=== PATIENT | female | born 1935 | race Caucasian/White ===

== ENCOUNTER → 2016-08-27 | Outpatient (CLI) | payer MEDICARE ==
[~2016-08-27] MED LIST: ALPR0.5T3 PO; ALPR0.5T99 PO; AMBI12.5 PO; ASPI81 PO; ASPI81CH CHEW; CEPH500C3 PO; LEVO100T5 PO; LEVO112T2 PO; LOSA50TA PO; LOVA40TA PO; METO25TA3 PO; PRAM.25 PO; PRAM0.25 PO; PRED10PA2 PO; ROSU20 PO; ROSU40 PO; TOPR25TA2 PO; ULTR50TA5 PO; VITA10002 PO; ZETI10TA5 PO; ZOLP10TA3 PO; coQ10 PO
[2016-08-27 12:01] LABS: PLATELET COUNT 196 TH/MM3 (150-450)
[2016-08-27 12:29] LABS: WESTERGREN SEDIMENTATION RATE 9 mm/hr (0-30)
== END ==
LOC: PLAB 11:38
PROVIDERS: ATTEND Emergency Medicine
DX: M31.6 Other giant cell arteritis (principal)
CPT/HCPCS: 36415; 85049; 85652; 86140

== ENCOUNTER 2016-10-20 11:26 | Observation (INO) | payer MEDICARE ==
[~2016-10-20] VITALS: Ht 157.5 cm; Wt 80.0 kg
[~2016-10-20 11:26] MED LIST changes: -ALPR0.5T3 PO; -ASPI81CH CHEW; -LEVO100T5 PO; -LOSA50TA PO; -METO25TA3 PO; -PRAM0.25 PO; -PRED10PA2 PO; -ROSU40 PO; -ULTR50TA5 PO; -VITA10002 PO; -ZETI10TA5 PO; -ZOLP10TA3 PO
[2016-10-20 11:34] VITALS: BP 175/75; PULSE 69; RESP 20; TEMP 98.1; O2SAT 97
[2016-10-20] MEDS ORDERED: ZOLP10TA3 PO (11:51)
[2016-10-20] MEDS ORDERED: ROSU40 PO (11:51)
[2016-10-20] MEDS ORDERED: ZETI10TA5 PO (11:51)
[2016-10-20] MEDS ORDERED: ALPR0.5T3 PO (11:51)
[2016-10-20] MEDS ORDERED: PRAM0.25 PO (11:51)
[2016-10-20] MEDS ORDERED: ASPI81CH CHEW (11:51)
[2016-10-20] MEDS ORDERED: VITA10002 PO (11:51)
[2016-10-20] MEDS ORDERED: LOSA50TA PO (11:51)
[2016-10-20] MEDS ORDERED: METO25TA3 PO (11:51)
[2016-10-20] MEDS ORDERED: methylPREDNISolone SOD SUCC 125 MG/2 ML VIAL IVP ONE (12:00)
[2016-10-20] MEDS ORDERED: NITROGLYCERIN 2% OINT 1 GM PACKET TOP ONE (12:00)
[2016-10-20] MEDS ORDERED: FUROSEMIDE 40 MG/4 ML VIAL IVP ONE (12:00)
[2016-10-20] MEDS ORDERED: MORPHINE SULFATE 4 MG/ML INJ IV PUSH ONE (12:00)
[2016-10-20] MEDS ORDERED: ASPIRIN 81 MG CHEW TAB PO ONE (12:00)
[2016-10-20] MEDS ORDERED: SODIUM CHLORID 0.9% 500 ML INJ 500 ML IV ONE (12:00)
[2016-10-20] MEDS ORDERED: SODIUM CHLORIDE 0.9% FLUSH 10 ML FLUSH IVF PRN (12:00)
[2016-10-20] MEDS: RESP: ALBUTEROL 2.5 MG/IPRATROPIUM 0.5 MG NEB (SCH) INH (12:02)
[2016-10-20 12:07] VITALS: O2SAT 98
[2016-10-20] MEDS ORDERED: RESP: ALBUTEROL 2.5 MG/IPRATROPIUM 0.5 MG NEB (SCH) NEB ONE (12:15)
[2016-10-20] MEDS ORDERED: LORazepam 2 MG/ML VIAL IV PUSH ONE (12:15)
--- NOTE | 2016-10-20 12:22 | PD ---
HPI Chief Complaint: Chest Pain Time Seen by Provider: 12:14 Travel History International Travel<30 days: No Contact w/Intl Traveler<30days: No Traveled to known affect area: No History of Present Illness HPI 80-year-old female brought into the emergency department via EMS with sudden onset anterior chest pain and difficulty breathing which started this morning while doing some light housework. Patient does have a history of CAD with stent placement in the past. Patient took 2 baby aspirin and received a total of 4 sublingual nitroglycerin with minimal relief. EKG shows sinus rhythm with right bundle-branch block. Patient was satting at 96% on 2 L oxygen via nasal cannula. She describes a severe pain in the anterior chest not worse with movement. No nausea, vomiting, or fever. No history of cough. Patient states it started in her back between her shoulder is now is radiating into the front. Patient is a smoker. She is allergic to Lipitor, Lopid, Mevacor, and sodium. Patient was recently diagnosed with shingles to the posterior neck and right eye. This is being followed by her primary care physician. PFSH Past Medical History Asthma: No Autoimmune Disease: No Blood Disorders: No Anxiety: No Depression: No Cardiac Catheterization: Yes Cardiovascular Problems: Yes High Cholesterol: Yes Chemotherapy: No Chest Pain: No Congestive Heart Failure: No COPD: No Diabetes: No Diminished Hearing: No Endocrine: Yes Gastrointestinal Disorders: No GERD: No Genitourinary: Yes (BLADEDER LIFT IN (2007) DONE IN [place]) Hepatitis: No Hiatal Hernia: No Hypertension: Yes Immune Disorder: No Implanted Vascular Access Dvce: No Kidney Stones: No Neurologic: No Psychiatric: No Reproductive: No Respiratory: No Myocardial Infarction: No Radiation Therapy: No Renal Failure: No Sleep Apnea: No Thyroid Disease: Yes Ulcer: No Tetanus Vaccination: Unknown Influenza Vaccination: No ?: Not Menopausal: Yes Past Surgical History Abdominal Surgery: Yes (BLADDER LIFT AND RECTUM RECONSTRUCTION IN ( [place]) AICD: No Appendectomy: No Arteriovenous Shunt: No Cardiac Surgery: No Cholecystectomy: No Coronary Stent: Yes Ear Surgery: No Endocrine Surgery: Yes (partial thyroidectomy) Eye Surgery: Yes (BILAT. CATARACT REMOVAL) Genitourinary Surgery: Yes (BLADDER LIFT IN ( [facility] ) Gynecologic Surgery: No Insulin Pump: No Joint Replacement: No Neurologic Surgery: No Oral Surgery: No Pacemaker: No Thoracic Surgery: No Other Surgery: Yes Social History Alcohol Use: No Tobacco Use: No Substance Use: No Allergies-Medications (Allergen,Severity, Reaction): Coded Allergies: Lipitor (Verified Allergy, Severe, ALLERGY TO CHOLESTEROL MEDS, 04/20/15) Lopid (Verified Allergy, Severe, ALLERGY TO CHOLESTEROL MEDS, 04/20/15) Mevacor (Verified Allergy, Severe, ALLERGY TO CHOLESTEROL MEDS, 04/20/15) Zetia (Verified Allergy, Severe, ALLERGY TO CHOLESTEROL MEDS, 04/20/15) Reported Meds & Prescriptions Reported Meds & Active Scripts Active Reported Alprazolam 0.5 Mg Tab 0.5 Mg PO Q8H PRN Zetia (Ezetimibe) 10 Mg Tab 10 Mg PO DAILY Zolpidem (Zolpidem Tartrate) 10 Mg Tab 10 Mg PO HS PRN Pramipexole (Pramipexole Dihydrochloride) 0.25 Mg Tab 0.25 Mg PO BID Crestor (Rosuvastatin Calcium) 40 Mg Tab 40 Mg PO DAILY Vitamin B-12 (Cyanocobalamin) 1,000 Mcg Tab 1,000 Mcg PO DAILY Metoprolol Tartrate 25 Mg Tab 25 Mg PO BID Losartan (Losartan Potassium) 50 Mg Tab 50 Mg PO DAILY Aspirin 81 Mg Chew 162 Mg CHEW ONCE Review of Systems ROS Limitations: Clinical Condition General / Constitutional: No: Fever Eyes: No: Visual changes HENT: No: Headaches Cardiovascular: No: Chest Pain or Discomfort Respiratory: No: Shortness of Breath Gastrointestinal: No: Abdominal Pain Genitourinary: No: Dysuria Musculoskeletal: No: Pain Skin: No Rash Neurologic: No: Weakness Psychiatric: No: Depression Endocrine: No: Polydipsia Hematologic/Lymphatic: No: Easy Bruising Physical Exam Narrative GENERAL: Patient is in moderate respiratory distress. She is in obvious pain. SKIN: Warm and dry. Normal color. Normal turgor. Patient does have shingles rash to the posterior cervical area of the neck. No facial rash. HEAD: Atraumatic. Normocephalic. EYES: Pupils equal and round. No scleral icterus. No injection or drainage. ENT: No nasal bleeding or discharge. Mucous membranes pink and moist. Pharynx is clear. Airway is patent. NECK: Trachea midline. No JVD. CARDIOVASCULAR: Regular rate and rhythm. No murmurs gallops or rubs appreciated. RESPIRATORY: No accessory muscle use. Clear to auscultation. No wheezes, crackles or rales. Breath sounds equal bilaterally. GASTROINTESTINAL: Abdomen soft, non-tender, nondistended. Hepatic and splenic margins not palpable. MUSCULOSKELETAL: Extremities without clubbing, cyanosis, or edema. No obvious deformities. NEUROLOGICAL: Awake and alert. No obvious cranial nerve deficits. Motor grossly within normal limits. Five out of 5 muscle strength in the arms and legs. Normal speech. PSYCHIATRIC: Appropriate mood and affect; insight and judgment normal. Data Data Last Documented VS Vital Signs Date Time Temp Pulse Resp B/P Pulse Ox O2 Delivery O2 Flow Rate FiO2 10/20/16 12:07 98 Nasal Cannula 3.00 10/20/16 11:39 67 10/20/16 11:34 98.1 20 175/75 Orders B-Type Natriuretic Peptide (10/20/16 11:50) Ckmb (Isoenzyme) Profile (10/20/16 11:50) Complete Blood Count With Diff (10/20/16 11:50) Comprehensive Metabolic Panel (10/20/16 11:50) Magnesium (Mg) (10/20/16 11:50) Prothrombin Time / Inr (Pt) (10/20/16 11:50) Act Partial Throm Time (Ptt) (10/20/16 11:50) Troponin I (10/20/16 11:50) Lipase (10/20/16 11:50) Chest, Single Ap (10/20/16 11:50) Ecg Monitoring (10/20/16 11:50) Bilateral Bp Monitoring (10/20/16 11:50) Iv Access Insert/Monitor (10/20/16 11:50) Oximetry (10/20/16 11:50) Oxygen Administration (10/20/16 11:50) Aspirin Chew (Aspirin Chew) (10/20/16 12:00) Morphine Inj (Morphine Inj) (10/20/16 12:00) Nitroglycerin 2% Oint (Nitroglycerin 2% (10/20/16 12:00) Sodium Chloride 0.9% Flush (Ns Flush) (10/20/16 12:00) Sodium Chlorid 0.9% 500 Ml Inj (Ns 500 M (10/20/16 12:00) Furosemide Inj (Lasix Inj) (10/20/16 12:00) Methylprednisolone So Succ Inj (Solumedr (10/20/16 12:00) Albuterol-Ipratropium Neb (Duoneb Neb) (10/20/16 12:00) Lorazepam Inj (Ativan Inj) (10/20/16 12:15) Albuterol-Ipratropium Neb (Duoneb Neb) (10/20/16 12:15) Ct Pulmonary Angiogram (10/20/16 ) CKMB (10/20/16 12:10) CKMB% (10/20/16 12:10) Iohexol 350 Inj (Omnipaque 350 Inj) (10/20/16 13:31) Labs Laboratory Tests Test 10/20/16 12:10 White Blood Count 8.3 TH/MM3 Red Blood Count 4.81 MIL/MM3 Hemoglobin 14.9 GM/DL Hematocrit 43.2 % Mean Corpuscular Volume 89.8 FL Mean Corpuscular Hemoglobin 31.0 PG Mean Corpuscular Hemoglobin 34.5 % Concent Red Cell Distribution Width 14.6 % Platelet Count 192 TH/MM3 Mean Platelet Volume 7.9 FL Neutrophils (%) (Auto) 72.1 % Lymphocytes (%) (Auto) 21.1 % Monocytes (%) (Auto) 6.0 % Eosinophils (%) (Auto) 0.3 % Basophils (%) (Auto) 0.5 % Neutrophils # (Auto) 6.0 TH/MM3 Lymphocytes # (Auto) 1.8 TH/MM3 Monocytes # (Auto) 0.5 TH/MM3 Eosinophils # (Auto) 0.0 TH/MM3 Basophils # (Auto) 0.0 TH/MM3 CBC Comment DIFF FINAL Differential Comment Prothrombin Time 10.6 SEC Prothromb Time International 1.0 RATIO Ratio Activated Partial 28.9 SEC Thromboplast Time Sodium Level 142 MEQ/L Potassium Level 4.4 MEQ/L Chloride Level 107 MEQ/L Carbon Dioxide Level 27.8 MEQ/L Anion Gap 7 MEQ/L Blood Urea Nitrogen 12 MG/DL Creatinine 0.74 MG/DL Estimat Glomerular Filtration 76 ML/MIN Rate Random Glucose 94 MG/DL Calcium Level 9.3 MG/DL Magnesium Level 2.1 MG/DL Total Bilirubin 0.5 MG/DL Aspartate Amino Transf 19 U/L (AST/SGOT) Alanine Aminotransferase 24 U/L (ALT/SGPT) Alkaline Phosphatase 72 U/L Total Creatine Kinase 110 U/L Creatine Kinase MB 1.1 NG/ML Troponin I LESS THAN 0.02 NG/ML B-Type Natriuretic Peptide 47 PG/ML Total Protein 7.2 GM/DL Albumin 3.7 GM/DL Lipase 112 U/L [facility] Medical Decision Making Medical Screen Exam Complete: Yes Emergency Medical Condition: Yes Medical Record Reviewed: Yes Differential Diagnosis Coronary syndrome. AAA. Possible aortic dissection. PE. Anxiety. Chest pain. Narrative Course Patient is in moderate distress. Dr. Villalba called the bedside and examined the patient as well. Labs ordered including CBC, CMP, BNP, cardiac panel, and urinalysis. Chest x-ray is ordered as well as CT pulmonary angiogram. Patient is given DuoNeb 1. Patient is given morphine 4 mg IV as well as 162 mg chewable aspirin, as well as 1 mg lorazepam IV 1 inch of 2% nitroglycerin ointment is placed. 1300 hrs. patient is more comfortable with improved symptoms after medications. CT pulmonary angiogram pending. CBC is unremarkable. CMP is unremarkable and troponin is less than 0.02. CT pulmonary angiogram shows no acute process. Per radiologist. CT report. Patient discussed with Dr. Ross and chest pain center admission is felt warranted. Diagnosis Primary Impression: Chest pain Qualified Code: R07.2 - Precordial pain Admitting Information Admitting Physician Requests: Observation Condition: Stable Doni Boyer Oct 20, 2016 12:22
[2016-10-20 12:34] LABS: BASOPHIL % 0.5 % (0.0-2.0); EOSINOPHIL % 0.3 % (0.0-4.0); HEMATOCRIT 43.2 % (35.0-46.0); HEMO FLAGS DIFF FINAL; LYMPH % 21.1 % (9.0-44.0); LYMPHOCYTE # 1.8 TH/MM3 (1.0-4.8); MEAN CELL VOLUME 89.8 FL (80.0-100.0); MEAN CORPUSCULAR HGB CONC 34.5 % (32.0-36.0); NEUT % 72.1 % (16.0-70.0); PLATELET COUNT 192 TH/MM3 (150-450); RED BLOOD COUNT 4.81 MIL/MM3 (4.00-5.30); RED CELL DISTRIBUTION WIDTH 14.6 % (11.6-17.2); WHITE BLOOD COUNT 8.3 TH/MM3 (4.0-11.0)
[2016-10-20 12:41] LABS: APTT (PATIENT) 28.9 SEC (24.3-30.1); PROTHROMBIN TIME - PATIENT 10.6 SEC (9.8-11.6)
[2016-10-20 12:48] LABS: ANION GAP 7 MEQ/L (5-15); AST (GOT) 19 U/L (15-37); BICARBONATE 27.8 MEQ/L (21.0-32.0); BLOOD UREA NITROGEN 12 MG/DL (7-18); CHLORIDE 107 MEQ/L (98-107); GLOMERULAR FILTRATION RATE 76 ML/MIN (>89); MAGNESIUM 2.1 MG/DL (1.5-2.5); POTASSIUM 4.4 MEQ/L (3.5-5.1); SODIUM (NA) 142 MEQ/L (136-145)
[2016-10-20 12:50] LABS: ALKALINE PHOSPHATASE 72 U/L (45-117); ALT (GPT) 24 U/L (10-53); CREATINE KINASE 110 U/L (26-192); TOTAL BILIRUBIN ADULT 0.5 MG/DL (0.2-1.0)
[2016-10-20 13:03] LABS: CKMB 1.1 NG/ML (0.5-3.6)
--- NOTE | 2016-10-20 13:18 | RADRPT ---
EXAM DATE/TIME: 10/20/2016 12:11 [facility] COMPARISON: No previous studies available for comparison. INDICATIONS : Chest pain, shortness of breath. MEDICAL HISTORY : Hypertension. SURGICAL HISTORY : None. ENCOUNTER: Initial ACUITY: 1 day PAIN SCORE: 6/10 LOCATION: Bilateral upper chest FINDINGS: The lungs are clear without infiltrate, nodule, or mass. There is no appreciable pleural effusion fo r technique. There is prominence of the mediastinal shadow possibly technical, however adenopathy or mass is difficult to exclude. CT angiogram to follow. IMPRESSION: No acute cardiopulmonary disease and prominence of the mediastinal shadow to be further c haracterized with CT angiogram. Karen Dela Cruz MD on October 20, 2016 at 13:15 Board Certified Radiologist. This report was verified electronically.
[2016-10-20] MEDS ORDERED: IOHEXOL 350 MG/ML 10 ML VIAL (for RAD DIAG) IV ONE (13:31)
--- NOTE | 2016-10-20 13:55 | RADRPT ---
EXAM DATE/TIME: 10/20/2016 13:17 [facility] COMPARISON: No previous studies available for comparison. INDICATIONS : Chest pain. IV CONTRAST: 75 cc Omnipaque 350 (iohexol) IV RADIATION DOSE: 23.06 CTDIvol (mGy) MEDICAL HISTORY : Cardiovascular disease. SURGICAL HISTORY : None. ENCOUNTER: Initial ACUITY: 1 day PAIN SCALE: 4/10 LOCATION: chest TECHNIQUE: Volumetric scanning of the chest was performed using a pulmonary embolism protocol MIP images were re constructed. Using automated exposure control and adjustment of the mA and/or kV according to patien t size, radiation dose was kept as low as reasonably achievable to obtain optimal diagnostic quality images. FINDINGS: PULMONARY ARTERIES: No filling defects are seen in the pulmonary arteries through the segmental level. LUNGS: Bibasilar atelectatic changes. No confluent infiltrate. PLEURAE: There is no pleural thickening or pleural effusion. Prominent subpleural fat in the left lung base MEDIASTINUM: There is good visualization of the great vessels of the middle mediastinum. No evidence of mediastin al or hilar adenopathy/mass. Atherosclerotic calcification of the coronary arteries. MUSCULOSKELETAL: Within normal limits for patient age. MISCELLANEOUS: The visualized upper abdominal organs demonstrate no acute abnormality. 9 mm nodule in the right adre nal gland statistically represents an adenoma. CONCLUSION: 1. Bibasilar atelectatic changes with no confluent infiltrate. 2. No pulmonary embolus. 3. 9 mm nodule in the right adrenal gland is likely an adenoma. Cristian Javier MD on October 20, 2016 at 13:45 Board Certified Radiologist. This report was verified electronically.
--- NOTE | 2016-10-20 14:49 | EKG ---
Date Performed: 10/20/2016 Time Performed: 11:39:13 PTAGE: 80 years EKG: BASELINE ARTIFACT PRESENT. Sinus rhythm RIGHT BUNDLE BRANCH BLOCK ABNORMAL ECG NO PREVIOUS TRACING DOCTOR: Juan Antonio Sheehan Interpretating Date/Time 10/20/2016 14:48:02
--- NOTE | 2016-10-20 14:59 | PD ---
Data Data Last Documented VS Vital Signs Date Time Temp Pulse Resp B/P Pulse Ox O2 Delivery O2 Flow Rate FiO2 10/20/16 12:07 98 Nasal Cannula 3.00 10/20/16 11:39 67 10/20/16 11:34 98.1 20 175/75 Orders B-Type Natriuretic Peptide (10/20/16 11:50) Ckmb (Isoenzyme) Profile (10/20/16 11:50) Complete Blood Count With Diff (10/20/16 11:50) Comprehensive Metabolic Panel (10/20/16 11:50) Magnesium (Mg) (10/20/16 11:50) Prothrombin Time / Inr (Pt) (10/20/16 11:50) Act Partial Throm Time (Ptt) (10/20/16 11:50) Troponin I (10/20/16 11:50) Lipase (10/20/16 11:50) Chest, Single Ap (10/20/16 11:50) Ecg Monitoring (10/20/16 11:50) Bilateral Bp Monitoring (10/20/16 11:50) Iv Access Insert/Monitor (10/20/16 11:50) Oximetry (10/20/16 11:50) Oxygen Administration (10/20/16 11:50) Aspirin Chew (Aspirin Chew) (10/20/16 12:00) Morphine Inj (Morphine Inj) (10/20/16 12:00) Nitroglycerin 2% Oint (Nitroglycerin 2% (10/20/16 12:00) Sodium Chloride 0.9% Flush (Ns Flush) (10/20/16 12:00) Sodium Chlorid 0.9% 500 Ml Inj (Ns 500 M (10/20/16 12:00) Furosemide Inj (Lasix Inj) (10/20/16 12:00) Methylprednisolone So Succ Inj (Solumedr (10/20/16 12:00) Albuterol-Ipratropium Neb (Duoneb Neb) (10/20/16 12:00) Lorazepam Inj (Ativan Inj) (10/20/16 12:15) Albuterol-Ipratropium Neb (Duoneb Neb) (10/20/16 12:15) Ct Pulmonary Angiogram (10/20/16 ) CKMB (10/20/16 12:10) CKMB% (10/20/16 12:10) Iohexol 350 Inj (Omnipaque 350 Inj) (10/20/16 13:31) Admit Order (Ed Use Only) (10/20/16 13:59) Labs Laboratory Tests Test 10/20/16 12:10 White Blood Count 8.3 TH/MM3 Red Blood Count 4.81 MIL/MM3 Hemoglobin 14.9 GM/DL Hematocrit 43.2 % Mean Corpuscular Volume 89.8 FL Mean Corpuscular Hemoglobin 31.0 PG Mean Corpuscular Hemoglobin 34.5 % Concent Red Cell Distribution Width 14.6 % Platelet Count 192 TH/MM3 Mean Platelet Volume 7.9 FL Neutrophils (%) (Auto) 72.1 % Lymphocytes (%) (Auto) 21.1 % Monocytes (%) (Auto) 6.0 % Eosinophils (%) (Auto) 0.3 % Basophils (%) (Auto) 0.5 % Neutrophils # (Auto) 6.0 TH/MM3 Lymphocytes # (Auto) 1.8 TH/MM3 Monocytes # (Auto) 0.5 TH/MM3 Eosinophils # (Auto) 0.0 TH/MM3 Basophils # (Auto) 0.0 TH/MM3 CBC Comment DIFF FINAL Differential Comment Prothrombin Time 10.6 SEC Prothromb Time International 1.0 RATIO Ratio Activated Partial 28.9 SEC Thromboplast Time Sodium Level 142 MEQ/L Potassium Level 4.4 MEQ/L Chloride Level 107 MEQ/L Carbon Dioxide Level 27.8 MEQ/L Anion Gap 7 MEQ/L Blood Urea Nitrogen 12 MG/DL Creatinine 0.74 MG/DL Estimat Glomerular Filtration 76 ML/MIN Rate Random Glucose 94 MG/DL Calcium Level 9.3 MG/DL Magnesium Level 2.1 MG/DL Total Bilirubin 0.5 MG/DL Aspartate Amino Transf 19 U/L (AST/SGOT) Alanine Aminotransferase 24 U/L (ALT/SGPT) Alkaline Phosphatase 72 U/L Total Creatine Kinase 110 U/L Creatine Kinase MB 1.1 NG/ML Troponin I LESS THAN 0.02 NG/ML B-Type Natriuretic Peptide 47 PG/ML Total Protein 7.2 GM/DL Albumin 3.7 GM/DL Lipase 112 U/L [facility] Supervised Visit with YURIY: Yes Narrative Course The history, exam, and medical decision-making in the associated mid-level provider note were completed with my assistance. I reviewed and agree with the findings presented. I attest that I had a [id number] encounter with the patient on the same day, and personally performed and documented my assessment and findings in the medical record. *My assessment and Findings: 80 year-old woman who presents to the emergency department complaining of shortness of breath and chest pain. She is he came on fairly abruptly from her back and into her chest. On initial exam she was having some hyperventilation complaining of not being able to breathe. She appeared very anxious. Initial workups unremarkable. Some concern for PE or dissection. The pain seems very pleuritic and despite the symptoms of starting in the back and coming on fairly abruptly, though PE was more likely. She had good symmetric pulses throughout. I think some of the symptoms may be anxiety related. We did check CT pulmonary angiogram which is unremarkable. We'll plan on admission to chest pain Center for further evaluation. Diagnosis Primary Impression: Chest pain Qualified Code: R07.2 - Precordial pain Condition: Stable Domingo Ross MD Oct 20, 2016 14:58
[2016-10-20 15:28] VITALS: BP 155/74; PULSE 70; RESP 20; O2SAT 98
[2016-10-20] MEDS ORDERED: ACETAMINOPHEN/HYDROcodone 325 MG/7.5 MG TAB PO PRN (15:30)
[2016-10-20] MEDS ORDERED: ZOLPIDEM TARTRATE 10 MG TAB PO PRN (15:30)
[2016-10-20] MEDS ORDERED: ALPRAZolam 0.25 MG TAB PO PRN (15:30)
[2016-10-20] MEDS ORDERED: ONDANSETRON HCL 4 MG/2 ML VIAL IV PRN (15:30)
[2016-10-20] MEDS ORDERED: ACETAMINOPHEN 500 MG CPLT PO PRN (15:30)
[2016-10-20] MEDS ORDERED: SODIUM CHLORIDE 0.9% FLUSH 10 ML FLUSH IV FLUSH PRN (15:30)
[2016-10-20] MEDS ORDERED: ALPRAZolam 0.5 MG TAB PO PRN (15:30)
[2016-10-20 15:55] VITALS: PULSE 55
[2016-10-20 16:04] LABS: CREATINE KINASE 92 U/L (26-192)
--- NOTE | 2016-10-20 16:05 | HHI.HP ---
[facility] Primary Care Physician Huey Rodriges MD Chief Complaint Chest pain History of Present Illness This is an 80-year-old female that presents to ED via [facility] with a complaint of chest discomfort. She has history of CAD. She had a heart catheterization in 2008 and needed a stent of LAD but also was found to have mild to moderate disease of the left circumflex and RCA as well as mild disease of the left main. She states that she was getting ready for a shower this morning after doing some light housework when she developed a pain in her mid back. This is the same discomfort that she had when she needed a stent in 2008. At the same time she also had a discomfort in the center of her chest. Describes it as tightness. No associated nausea or diaphoresis. She states that are time catching her breath. Her son called 911. EVAC gave 3 sprays a subluminal nitroglycerin which really did not change her symptoms. She states her symptoms began to improve rather rapidly after getting medication in the ER. She was given IV morphine, IV Ativan, DuoNeb, and Solu-Medrol. She follows Dr. Rodriges for primary care and Dr. Love. She states that she believes she has a stress test about every year and believes she set for another one next month. Denies recent illnesses. Denies fevers or chills. The physician field administrative assistant taking care of the patient emerged from states that she appeared to be quite a bit of respiratory distress when he first evaluated her. He believes she started to improve after getting the Ativan. Review of Systems General: Patient denies fevers, chills recent, and recent travel HEENT: Patient denies headache, sore throat, difficulty swallowing. Cardiovascular: Has the chest discomfort as mentioned above. States she had the sensation of her heart beating rapidly. No diaphoresis. No syncope. Respiratory: States she was having a hard time catching her breath. Denies coughing wheezing or hemoptysis. Her son also do not know Seney wheezing. GI: Patient denies nausea, vomiting, diarrhea, abdominal pain, bloody stools. Musculoskeletal: Patient denies joint pain or edema. Denies calf pain or edema. Neurovascular: Patient denies numbness, tingling, weakness in extremities. Denies headache. Endocrine: Denies polyuria and polydipsia. Hematologic: Denies easy bruising. Skin: Complains of dealing with shingles since May 2016. It has been affecting the back of her neck and possibly left eye. She has been following ophthalmology and her primary care doctor for these issues. Past Family Social History Allergies: Coded Allergies: Lipitor (Verified Allergy, Severe, ALLERGY TO CHOLESTEROL MEDS, 04/20/15) Lopid (Verified Allergy, Severe, ALLERGY TO CHOLESTEROL MEDS, 04/20/15) Mevacor (Verified Allergy, Severe, ALLERGY TO CHOLESTEROL MEDS, 04/20/15) Zetia (Verified Allergy, Severe, ALLERGY TO CHOLESTEROL MEDS, 04/20/15) Past Medical History CAD with a stent of LAD. She also had mild to moderate disease a left circumflex and RCA and mild disease to the left main. Hypertension, hyperlipidemia, and patient still smokes cigarettes. Denies diabetes. Past Surgical History Cardiac catheterization with stenting in 2008. Bladder suspension. Partial thyroidectomy. Bilateral cataracts. Reported Medications Reported Meds & Active Scripts Active Reported Alprazolam 0.5 Mg Tab 0.5 Mg PO Q8H PRN Zetia (Ezetimibe) 10 Mg Tab 10 Mg PO DAILY Zolpidem (Zolpidem Tartrate) 10 Mg Tab 10 Mg PO HS PRN Pramipexole (Pramipexole Dihydrochloride) 0.25 Mg Tab 0.25 Mg PO BID Crestor (Rosuvastatin Calcium) 40 Mg Tab 40 Mg PO DAILY Vitamin B-12 (Cyanocobalamin) 1,000 Mcg Tab 1,000 Mcg PO DAILY Metoprolol Tartrate 25 Mg Tab 25 Mg PO BID Losartan (Losartan Potassium) 50 Mg Tab 50 Mg PO DAILY Aspirin 81 Mg Chew 162 Mg CHEW ONCE Active Ordered Medications Current Medications Medications (Trade) Dose Ordered Sig/Guillermo Route Start Time Stop Time Status Last Admin (NS Flush) 2 ml UNSCH PRN IV FLUSH 10/20/16 15:30 (NS Flush) 2 ml BID IV FLUSH 10/20/16 21:00 (Tylenol) 500 mg Q4H PRN PO 10/20/16 15:30 ([place]eter 7.5-325 Mg) 1 tab Q4H PRN PO 10/20/16 15:30 (Zofran Inj) 4 mg Q6H PRN IV 10/20/16 15:30 (Aspirin) 325 mg DAILY PO 10/21/16 09:00 (Cozaar) 50 mg DAILY PO 10/21/16 09:00 (Ambien) 10 mg HS PRN PO 10/20/16 15:30 (Xanax) 0.5 mg Q8H PRN PO 10/20/16 15:30 (Zetia) 10 mg DAILY PO 10/21/16 09:00 (Lopressor) 25 mg BID PO 10/20/16 21:00 (Mirapex) 0.25 mg BID PO 10/20/16 21:00 Patient Own Medication PT OWN MED: DEVI... DAILY PO 10/21/16 09:00 Future Hold Family History There is family history of CAD. Social History Patient continues to smoke. She smokes an average 1 pack of cigarettes daily for 60 years. Denies alcohol or illicit drugs. Physical Exam Vital Signs Vital Signs Date Time Temp Pulse Resp B/P Pulse Ox O2 Delivery O2 Flow Rate FiO2 10/20/16 15:28 70 20 155/74 98 10/20/16 12:07 98 Nasal Cannula 3.00 10/20/16 11:39 67 97 Nasal Cannula 2 10/20/16 11:34 98.1 69 20 175/75 97 Physical Exam GENERAL: This is a well-nourished, well-developed patient, in no apparent distress. Patient speaks in clear complete sentences. Patient is pleasant. Her son is at the bedside he states that she looks a lot better than when she first arrived in the ED. He states she was having a hard time catching her breath. HEENT: Head is atraumatic and normocephalic. Neck is supple without lymphadenopathy and trachea is midline. No JVD or carotid bruits. CARDIOVASCULAR: Regular rate and rhythm without murmurs, gallops, or rubs. RESPIRATORY: Clear to auscultation. Breath sounds equal bilaterally. No wheezes , rales, or rhonchi. Chest wall is nontender. No use of accessory muscles. GASTROINTESTINAL: Abdomen is nontender, nondistended. Abdomen soft. No obvious pulsatile mass or bruit. No CVA tenderness. Strong femoral pulses bilaterally. Normal bowel sounds in all quadrants. MUSCULOSKELETAL: Patient is moving upper and lower extremities freely. No calf tenderness or edema, no Homans sign. Strong pulses in upper and lower extremities. NEUROLOGICAL: Patient is alert and oriented. Cranial nerves 2-12 are grossly intact. No focal deficits and speech is clear. SKIN: No rash and turgor is normal. Laboratory Laboratory Tests Test 10/20/16 12:10 White Blood Count 8.3 Red Blood Count 4.81 Hemoglobin 14.9 Hematocrit 43.2 Mean Corpuscular Volume 89.8 Mean Corpuscular Hemoglobin 31.0 Mean Corpuscular Hemoglobin 34.5 Concent Red Cell Distribution Width 14.6 Platelet Count 192 Mean Platelet Volume 7.9 Neutrophils (%) (Auto) 72.1 Lymphocytes (%) (Auto) 21.1 Monocytes (%) (Auto) 6.0 Eosinophils (%) (Auto) 0.3 Basophils (%) (Auto) 0.5 Neutrophils # (Auto) 6.0 Lymphocytes # (Auto) 1.8 Monocytes # (Auto) 0.5 Eosinophils # (Auto) 0.0 Basophils # (Auto) 0.0 CBC Comment DIFF FINAL Differential Comment Prothrombin Time 10.6 Prothromb Time International 1.0 Ratio Activated Partial 28.9 Thromboplast Time Sodium Level 142 Potassium Level 4.4 Chloride Level 107 Carbon Dioxide Level 27.8 Anion Gap 7 Blood Urea Nitrogen 12 Creatinine 0.74 Estimat Glomerular Filtration 76 Rate Random Glucose 94 Calcium Level 9.3 Magnesium Level 2.1 Total Bilirubin 0.5 Aspartate Amino Transf 19 (AST/SGOT) Alanine Aminotransferase 24 (ALT/SGPT) Alkaline Phosphatase 72 Total Creatine Kinase 110 Creatine Kinase MB 1.1 Troponin I LESS THAN 0.02 B-Type Natriuretic Peptide 47 Total Protein 7.2 Albumin 3.7 Lipase 112 Result Diagram: 10/20/16 1210 10/20/16 1210 Imaging Last [address] Angiography 10/20/16 0000 Signed Impressions: Service Date/Time: Thursday, October 20, 2016 13:17 - CONCLUSION: 1. Bibasilar atelectatic changes with no confluent infiltrate. 2. No pulmonary embolus. 3. 9 mm nodule in the right adrenal gland is likely an adenoma. Cristian Javier MD Course Initial EKG is a right bundle branch block with a rate of 71. Assessment and Plan Assessment and Plan * Chest pain: Patient has history of CAD. She will have serial cardiac enzymes and EKGs for ruling out purposes and will be evaluated by Dr. Murrieta of cardiology in the chest pain center. I will also speak with the patient's file machine operator Dr. Love. Further plan pending Dr. Murrieta's evaluation as well as conversation with Dr. Love. * CAD: We'll reassess his visit. She will also follow-up afterwards with her file machine operator. * Hypertension: Continue current medication. * Hyperlipidemia: Continue current medication. * Tobacco abuse: Patient counseled on the importance of smoking cessation. Patient is stable at this time. She is agreeable to this plan. Huey Perrin Oct 20, 2016 16:05
[2016-10-20 17:36] VITALS: BP 155/97; PULSE 58; RESP 18; TEMP 98.4; O2SAT 97
[2016-10-20 19:43] LABS: CREATINE KINASE 96 U/L (26-192)
[2016-10-20 19:49] VITALS: BP 111/51; PULSE 76; RESP 18; TEMP 98.7; O2SAT 95
[2016-10-20] MEDS: SODIUM CHLORIDE 0.9% FLUSH 10 ML FLUSH IV FLUSH SCH (22:05)
[2016-10-20] MEDS: METOPROLOL TARTRATE 25 MG TAB PO SCH (22:05)
[2016-10-20] MEDS: PRAMIPEXOLE DIHYDROCHLORIDE 0.25 MG TAB PO SCH (22:05)
[2016-10-21 00:05] VITALS: BP 106/52; PULSE 66; RESP 18; TEMP 99; O2SAT 95
[2016-10-21 03:56] VITALS: O2SAT 95
[2016-10-21 05:25] VITALS: BP 103/53; PULSE 63; RESP 18; TEMP 98.9; O2SAT 95
[2016-10-21 07:36] VITALS: BP 112/53; PULSE 78; RESP 18; TEMP 98.3; O2SAT 91
[2016-10-21 08:12] VITALS: O2SAT 92
[2016-10-21] MEDS ORDERED: LOSARTAN 50 MG TAB PO SCH (09:00)
[2016-10-21] MEDS ORDERED: ASPIRIN 325 MG TAB PO SCH (09:00)
[2016-10-21] MEDS ORDERED: EZETIMIBE 10 MG TAB PO SCH (09:00)
[2016-10-21] MEDS ORDERED: CRESTOR 40 MG PO SCH (09:00)
--- NOTE | 2016-10-21 09:07 | HHI.DCPOC ---
Discharge Care Plan Diagnosis: (1) Atypical chest pain (2) Anxiety (3) Tobacco abuse (4) Hx of coronary artery disease Goals to Promote Your Health * To prevent worsening of your condition and complications * To maintain your health at the optimal level Directions to Meet Your Goals Take your medications as prescribed Follow your dietary instruction Follow activity as directed Keep your appointments as scheduled Take your immunizations and boosters as scheduled If your symptoms worsen call your PCP, if no PCP go to Urgent Care Center or Emergency Room Smoking is Dangerous to Your Health. Avoid second hand smoke Call the 24-hour hour crisis hotline for domestic abuse at Emilee Viera Oct 21, 2016 09:07
[2016-10-21] MEDS: PRAMIPEXOLE DIHYDROCHLORIDE 0.25 MG TAB PO SCH (09:16)
[2016-10-21] MEDS: METOPROLOL TARTRATE 25 MG TAB PO SCH (09:17)
[2016-10-21] MEDS: SODIUM CHLORIDE 0.9% FLUSH 10 ML FLUSH IV FLUSH SCH (09:17)
[2016-10-21 09:55] VITALS: PULSE 35; PULSE 65
--- NOTE | 2016-10-21 17:36 | EKG ---
Date Performed: 10/20/2016 Time Performed: 20:51:38 PTAGE: 80 years EKG: Sinus rhythm RIGHT BUNDLE BRANCH BLOCK ABNORMAL ECG Since PREVIOUS TRACING , no significant change noted PREVIOUS TRACIN10/20/2016 16.09 DOCTOR: Carmen Murrieta Interpretating Date/Time 10/21/2016 17:34:10
--- NOTE | 2016-10-21 17:36 | EKG ---
Date Performed: 10/20/2016 Time Performed: 16:09:19 PTAGE: 80 years EKG: Sinus rhythm RIGHT BUNDLE BRANCH BLOCK ABNORMAL ECG Since PREVIOUS TRACING , no significant change noted PREVIOUS TRACIN10/20/2016 11.39 DOCTOR: Carmen Murrieta Interpretating Date/Time 10/21/2016 17:34:00
== END 2016-10-21 11:05 | disposition home or self-care (01) ==
LOC: NEPC 11:26 → NEDA 14:01 → NEPHCDU 16:22
PROVIDERS: ADMIT Internal Medicine Cardiovascular Disease; ATTEND Internal Medicine Cardiovascular Disease
DX: R07.9 Chest pain, unspecified (principal); I25.10 Atherosclerotic heart disease of native coronary artery without angina pectoris; I10 Essential (primary) hypertension; E78.5 Hyperlipidemia, unspecified; E78.00 Pure hypercholesterolemia, unspecified; F17.210 Nicotine dependence, cigarettes, uncomplicated; Z88.8 Allergy status to other drugs, medicaments and biological substances; Z95.5 Presence of coronary angioplasty implant and graft; Z79.82 Long term (current) use of aspirin
CPT/HCPCS: 71010; 71275; 80053; 82550; 82552; 83690; 83735; 83880; 84484; 85025; 85610; 85730; 93005; 94664; 96361; 96374; 96375; 99285; G0378; J2060; J2270; J7040; Q9967

== ENCOUNTER 2016-12-28 09:43 | Emergency (ER) | payer MEDICARE ==
[~2016-12-28] VITALS: Ht 157.5 cm; Wt 85.1 kg
[~2016-12-28 09:43] MED LIST changes: +ALPR0.5T3 PO; -ALPR0.5T99 PO; -AMBI12.5 PO; -ASPI81 PO; +ASPI81CH CHEW; -CEPH500C3 PO; -LEVO112T2 PO; +LOSA50TA PO; -LOVA40TA PO; +METO25TA3 PO; -PRAM.25 PO; +PRAM0.25 PO; -ROSU20 PO; +ROSU40 PO; -TOPR25TA2 PO; +VITA10002 PO; +ZETI10TA5 PO; +ZOLP10TA3 PO; -coQ10 PO
[2016-12-28 09:45] VITALS: BP 145/81; PULSE 84; RESP 16; TEMP 97.9; O2SAT 94
[2016-12-28] MEDS ORDERED: LEVO100T5 PO (09:58)
--- NOTE | 2016-12-28 10:04 | PD ---
HPI . Bilateral hand pain and swelling Chief Complaint: Edema Time Seen by Provider: 09:56 Travel History International Travel<30 days: No Contact w/Intl Traveler<30days: No Traveled to known affect area: No History of Present Illness HPI The patient presents with a 2 week history of bilateral hand pain and swelling. Symptoms are aggravated by using her hands. Symptoms also get worse as the day goes on. Symptoms are relieved by Advil and Epsom salts soaks. Pain is described as constant and aching and is rated 10/10. There has been no injury. PFSH Past Medical History Hx Anticoagulant Therapy: Yes (162 MG. ASA DAILY) Asthma: No Autoimmune Disease: No Blood Disorders: No Anxiety: No Depression: No Heart Rhythm Problems: Yes (RIGHT BBB) Cardiac Catheterization: Yes (STENT) Cardiovascular Problems: Yes (NH, HTN, CHOL) High Cholesterol: Yes Chemotherapy: No Chest Pain: No Congestive Heart Failure: No COPD: No Diabetes: No Diminished Hearing: No Endocrine: Yes Gastrointestinal Disorders: No GERD: No Genitourinary: Yes (BLADEDER LIFT IN (2007) DONE IN [place]) Hepatitis: No Hiatal Hernia: No Hypertension: Yes Immune Disorder: No Implanted Vascular Access Dvce: No Kidney Stones: No Neurologic: No Psychiatric: No Reproductive: No Respiratory: No Myocardial Infarction: No Radiation Therapy: No Renal Failure: No Sleep Apnea: No Thyroid Disease: Yes Ulcer: No ?: Not Menopausal: Yes Past Surgical History Abdominal Surgery: Yes (BLADDER LIFT AND RECTUM RECONSTRUCTION IN (2007) [place]) AICD: No Appendectomy: No Arteriovenous Shunt: No Cardiac Surgery: No Cholecystectomy: No Coronary Artery Bypass Graft: No Coronary Stent: Yes Ear Surgery: No Endocrine Surgery: Yes (partial thyroidectomy) Eye Surgery: Yes (BILAT. CATARACT REMOVAL) Genitourinary Surgery: Yes (BLADDER LIFT IN (2007) [place]) Gynecologic Surgery: No Insulin Pump: No Joint Replacement: No Neurologic Surgery: No Oral Surgery: No Pacemaker: No Thoracic Surgery: No Other Surgery: Yes Social History Alcohol Use: No Tobacco Use: No (quit 11/2016) Substance Use: No Allergies-Medications (Allergen,Severity, Reaction): Coded Allergies: Lipitor (Verified Allergy, Severe, ALLERGY TO CHOLESTEROL MEDS, 12/28/16) Lopid (Verified Allergy, Severe, ALLERGY TO CHOLESTEROL MEDS, 12/28/16) Mevacor (Verified Allergy, Severe, ALLERGY TO CHOLESTEROL MEDS, 12/28/16) Zetia (Verified Allergy, Severe, ALLERGY TO CHOLESTEROL MEDS, 12/28/16) Reported Meds & Prescriptions Reported Meds & Active Scripts Active Reported Levothyroxine (Levothyroxine Sodium) 100 Mcg Tab 100 Mcg PO DAILY Alprazolam 0.5 Mg Tab 0.5 Mg PO Q8H PRN Zetia (Ezetimibe) 10 Mg Tab 10 Mg PO DAILY Zolpidem (Zolpidem Tartrate) 10 Mg Tab 10 Mg PO HS PRN Pramipexole (Pramipexole Dihydrochloride) 0.25 Mg Tab 0.25 Mg PO BID Crestor (Rosuvastatin Calcium) 40 Mg Tab 40 Mg PO DAILY Vitamin B-12 (Cyanocobalamin) 1,000 Mcg Tab 1,000 Mcg PO DAILY Metoprolol Tartrate 25 Mg Tab 12.5 Mg PO BID Losartan (Losartan Potassium) 50 Mg Tab 50 Mg PO DAILY Aspirin 81 Mg Chew 162 Mg CHEW ONCE Review of Systems Except as stated in HPI: all other systems reviewed are Neg General / Constitutional: No: Fever, Chills Musculoskeletal: Positive: Arthralgias, Edema Physical Exam Narrative GENERAL: Awake and alert and in no acute distress. SKIN: Warm and dry. HEAD: Atraumatic. Normocephalic. EYES: Pupils equal and round. NECK: Trachea midline. CARDIOVASCULAR: Regular rate and rhythm. RESPIRATORY: No accessory muscle use. MUSCULOSKELETAL: No obvious deformities. No edema. No point tenderness in her hands. No joint swelling or redness. She does have a ring on her left ring finger which is pretty tight. NEUROLOGICAL: Awake and alert. No obvious cranial nerve deficits. Motor grossly within normal limits. Normal speech. PSYCHIATRIC: Appropriate mood and affect; insight and judgment normal. Data Data Last Documented VS Vital Signs Date Time Temp Pulse Resp B/P Pulse Ox O2 Delivery O2 Flow Rate FiO2 12/28/16 09:45 97.9 84 16 145/81 94 Orders Hand, Complete ([id number]) (12/28/16 09:56) Hand, Complete ([id number]) (12/28/16 09:56) MDM Medical Decision Making Medical Screen Exam Complete: Yes Emergency Medical Condition: Yes Differential Diagnosis My differential diagnosis of a swollen extremity includes but is not limited to superficial phlebitis, DVT, cellulitis, arthritis, fluid and electrolyte problem Narrative Course Patient presents for the evaluation of pain and swelling of both hands. I suspect arthritis as her symptoms are exacerbated by use of her hands as well as by time of day. Symptoms are improved with Advil and Epson salt soaks. She needs to have her ring removed. I will obtain x-rays of her hands. Last Impressions Hand X-Ray 12/28/16 0956 Signed Impressions: Service Date/Time: Wednesday, December 28, 2016 10:15 - CONCLUSION: Mild primary degenerative changes involving the PIP and DIP joints. Devan Wheeler MD The hand x-rays were independently viewed by me. Diagnosis Primary Impression: Osteoarthritis of hands, bilateral Qualified Code: M19.041 - Primary osteoarthritis of both hands Patient Instructions: General Instructions, Osteoarthritis (DC) Med/Other Pt SpecificInfo: Prescription(s) given Scripts Tramadol (Ultram)50 Mg Tab50 Mg PO Q4H PRN (PAIN) #12 TAB Ref 0 Prov:Yas Yoo MD 12/28/16 Prednisone (48) 10 mg tab Dose Pack 10 Mg Dspk10 Mg PO DIRECTED #1 DSPK Ref 0 Prov:Yas Yoo MD 12/28/16 Disposition: 01 DISCHARGE HOME Condition: Stable Yas Yoo MD Dec 28, 2016 10:04
--- NOTE | 2016-12-28 10:29 | RADRPT ---
EXAM DATE/TIME: 12/28/2016 10:15 [facility] COMPARISON: No previous studies available for comparison. INDICATIONS : Bilateral hand swelling and pain, no known injury MEDICAL HISTORY : None. SURGICAL HISTORY : None. ENCOUNTER: Initial ACUITY: 2 weeks PAIN SCORE: 10/10 LOCATION: Left hand FINDINGS: Three view examination of the left hand demonstrates no soft tissue swelling, dislocation, or fractur e. The carpal bones appear intact. There some mild degenerative type changes involving the PIP and DIP joints.. Bony mineralization is normal. CONCLUSION: Mild primary degenerative changes involving the PIP and DIP joints. Devan Wheeler MD on December 28, 2016 at 10:25 Board Certified Radiologist. This report was verified electronically.
--- NOTE | 2016-12-28 10:31 | RADRPT ---
EXAM DATE/TIME: 12/28/2016 10:11 [facility] COMPARISON: No previous studies available for comparison. INDICATIONS : Bilateral hand swelling and pain, no known injury MEDICAL HISTORY : None. SURGICAL HISTORY : None. ENCOUNTER: Initial ACUITY: 2 weeks PAIN SCORE: 10/10 LOCATION: Right hand FINDINGS: Three view examination of the right hand demonstrates no soft tissue swelling, dislocation, or fractu re. The carpal bones appear intact. Mild degenerative type changes involving the PIP and DIP joint s. Bony mineralization is normal. CONCLUSION: Mild primary degenerative changes of the PIP and DIP joints. Devan Wheeler MD on December 28, 2016 at 10:29 Board Certified Radiologist. This report was verified electronically.
[2016-12-28] MEDS ORDERED: PRED10PA2 PO (10:39)
[2016-12-28] MEDS ORDERED: ULTR50TA5 PO (10:39)
== END 2016-12-28 10:55 | disposition home or self-care (01) ==
LOC: PHEFT 09:43
DX: M19.042 Primary osteoarthritis, left hand (principal); M19.041 Primary osteoarthritis, right hand; Z95.5 Presence of coronary angioplasty implant and graft; I10 Essential (primary) hypertension; E07.9 Disorder of thyroid, unspecified; I45.10 Unspecified right bundle-branch block; E78.00 Pure hypercholesterolemia, unspecified; Z79.82 Long term (current) use of aspirin; Z87.891 Personal history of nicotine dependence
CPT/HCPCS: 73130; 99284

== ENCOUNTER 2018-04-04 20:41 | Observation (INO) ==
--- NOTE | 2018-04-04 21:30 | XR ---
EXAM DATE: 04/04/2018 9:15 PM EDT AGE/SEX: 82 years / Female INDICATIONS: Chest pain CLINICAL DATA: This is the patient's initial encounter. Patient reports that signs and symptoms have been present for 3 days and indicates a pain score of 0/10. MEDICAL/SURGICAL HISTORY: Cardiovascular disease. CABG. COMPARISON: [facility] [place], CHEST SINGLE AP, 10/20/2016. . FINDINGS: A single AP view of the chest demonstrates the lungs to be symmetrically aerated without evidence of mass, infiltrate or effusion. The cardiomediastinal contours are unremarkable. Osseous structures a re intact. The patient is status post median sternotomy. There are overlying electrocardiogram leads . Mild atherosclerotic changes are present in the aorta. CONCLUSION: 1. Status post interval median sternotomy. 2. No acute cardiopulmonary disease. Electronically signed by: Eb Houston MD 04/04/2018 9:29 PM EDT
[2018-04-04 21:34] LABS: Baso % (Auto) 0.5 % (0.0-2.0); Eos # (Auto) 0.1 th/mm3 (0.0-0.4); Eos % (Auto) 1.2 % (0.0-4.0); Hematocrit 43.2 % (35.0-46.0); Hemoglobin 14.3 gm/dL (11.6-15.3); Lymph # (Auto) 1.7 th/mm3 (1.0-4.8); Lymph % (Auto) 38.6 % (9.0-44.0); Mean Corpuscular HGB Conc 33.1 % (32.0-36.0); Mean Corpuscular Hemoglobin 30.3 pg (27.0-34.0); Mean Corpuscular Volume 91.5 fL (80.0-100.0); Mean Platelet Volume 7.4 fL (7.0-11.0); Mono # (Auto) 0.6 th/mm3 (0.0-0.9); Mono % (Auto) 12.5 % (0.0-8.0); Neut # (Auto) 2.1 th/mm3 (1.8-7.7); Neut % (Auto) 47.2 % (16.0-70.0); Platelet Count 201 th/mm3 (150-450); Red Blood Count 4.72 mil/mm3 (4.00-5.30); Red Cell Distribution Width 14.3 % (11.6-17.2); White Blood Count 4.5 th/mm3 (4.0-11.0)
[2018-04-04 21:54] LABS: Activated Partial Thrombo Time 25.1 sec (24.3-30.1); INR 0.9 Ratio; Prothrombin Time 9.6 sec (9.8-11.6)
[2018-04-04 22:12] LABS: Albumin 3.4 g/dL (3.4-5.0); Anion Gap 7 meq/L (5-15); Aspartate Aminotransferase 16 U/L (15-37); Blood Urea Nitrogen 23 mg/dL (7-18); Carbon Dioxide 28.2 meq/L (21.0-32.0); Chloride 108 meq/L (98-107); Glomerular Filtration Rate 59 mL/min (>89); Glucose,Random 78 mg/dL (74-106); Lipase 168 U/L (73-393); Potassium 4.1 meq/L (3.5-5.1); Sodium 143 meq/L (136-145)
[2018-04-04 22:13] LABS: Alanine Aminotransferase 19 U/L (10-53)
--- NOTE | 2018-04-04 22:14 | ED ---
HPI General Chief Complaint: Chest Pain Stated Complaint: Chest pain Time Seen by Provider: 04/04/18 21:14 Source: patient Mode of arrival: EMS Limitations: no limitations History of Present Illness HPI narrative: Patient is an 82-year-old female presenting to the emergency department for evaluation of chest pain. Patient states for the last 3 nights she has had to take nitroglycerin for pain that occurred abruptly in the mid upper back. Pain is relieved with nitroglycerin. Patient similar presentation with her last heart attack. She states she became diaphoretic and then the pain started. Tonight the pain was not relieved initially and she presented to the ED via EMS for evaluation. Pt had been on Plavix but her PCP took her off at the end of February due to bruising. 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 Symptom onset is sudden, normally relieved with nitro. Pain is aching, 7/10 at the worst. MD complaint: chest pain STEMI Alert: No Onset (ago): day(s) Duration: intermittent Onset: during rest Pain location: other Severity scale (1-10): 7 Quality: aching and sharp Pain radiation: none Relieving factors: nitroglycerin Associated symptoms: diaphoresis Treatments prior to arrival chest pain: nitroglycerin Related Data On Oral Contraceptives: No Home Medications Medication Instructions Recorded Confirmed alprazolam 0.5 mg PO BID 04/04/18 04/05/18 aspirin 81 mg PO DAILY 04/04/18 04/04/18 coenzyme Q10 [Co Q-10] 200 mg PO DAILY 04/04/18 04/04/18 enalapril maleate See Label Instructions .ROUTE 04/04/18 04/04/18 .COMPLEX levothyroxine See Label Instructions .ROUTE 04/04/18 04/04/18 .COMPLEX trazodone See Label Instructions .ROUTE 04/04/18 04/04/18 .COMPLEX cholecalciferol (vitamin D3) 1,000 unit PO DAILY 04/05/18 04/05/18 cyanocobalamin (vitamin B-12) 1,000 mcg PO DAILY 04/05/18 04/05/18 pramipexole 0.5 mg PO DAILY 04/05/18 04/05/18 rosuvastatin [Crestor] 40 mg PO DAILY 04/05/18 04/05/18 Allergies Allergy/AdvReac Type Severity Reaction Status Date / Time No Known Allergies Allergy Unverified 04/04/18 20:58 Review of Systems ROS: all other systems reviewed are negative [facility] Medical History Medical History CAD (coronary artery disease) (Acute) HTN (hypertension), benign (Acute) History of kidney cancer (Acute) Hypothyroid (Acute) Surgical History Surgical History History of heart artery stent (Acute) History of heart bypass surgery (Acute) Social History Social History Substance History: No History of Abuse Second Hand Smoke Exposure: No Smoking Status: Current every day smoker Tobacco Type: E-Cigarettes How Often Do You Have a Drink Containing Alcohol: Never Recent Travel in [facility] within the Last 8 Weeks: No Recent Out of Country Travel within the Last 8 Weeks: No Immunization History Tetanus Immunization: Unsure Course Reevaluation(s) Reevaluation #1: Resting comfortably at time of recheck, sleeping, having no discomfort, reexamination stable, lungs are clear, vital signs remained stable. Time: 00:32 Initial Documented Vital Signs Pulse Rate 74 04/04/18 20:54 Respiratory Rate 16 04/04/18 20:54 Blood Pressure 174/72 H 04/04/18 20:54 Pulse Oximetry 94 L 04/04/18 20:54 Last Documented Vital Signs Temperature 98.0 F 04/06/18 16:00 Pulse Rate 62 04/06/18 18:00 Respiratory Rate 16 04/06/18 16:00 Blood Pressure 148/41 H 04/06/18 16:00 Pulse Oximetry 94 L 04/06/18 17:30 Medical Decision Making MDM Narrative Medical decision making narrative: This 82-year-old woman with coronary artery disease, prior myocardial infarction 6 years ago, has been having recurrent chest pains over the past several evenings reminiscent of her prior myocardial infarction. She is tested negative on examination today, and symptoms were somewhat worrisome for possible dissection or aneurysm, and CT angiography of the aorta was performed, and this was negative also, both for dissection, and for aneurysm, although there was mild dilatation of 3.2 cm in the descending thoracic aorta. Given the character of patient's symptoms, and the similarities to her prior myocardial infarction, patient will be admitted for observation and continued rule out of chest pain. Medical Screen Exam Complete: Yes Emergency Medical Condition: Yes Lab Data Result diagrams: 04/06/18 06:36 04/06/18 06:36 Lab Results 04/04/18 04/04/18 04/04/18 Range/Units 21:18 21:18 21:18 WBC 4.5 (4.0-11.0) th/mm3 RBC 4.72 (4.00-5.30) mil/mm3 Hgb 14.3 (11.6-15.3) gm/dL Hct 43.2 (35.0-46.0) % MCV 91.5 (80.0-100.0) fL MCH 30.3 (27.0-34.0) pg MCHC 33.1 (32.0-36.0) % RDW 14.3 (11.6-17.2) % Plt Count 201 (150-450) th/mm3 MPV 7.4 (7.0-11.0) fL Neut % (Auto) 47.2 (16.0-70.0) % Lymph % (Auto) 38.6 (9.0-44.0) % [place] % (Auto) 12.5 H (0.0-8.0) % Eos % (Auto) 1.2 (0.0-4.0) % Baso % (Auto) 0.5 (0.0-2.0) % Neut # (Auto) 2.1 (1.8-7.7) th/mm3 Lymph # (Auto) 1.7 (1.0-4.8) th/mm3 [place] # (Auto) 0.6 (0.0-0.9) th/mm3 Eos # (Auto) 0.1 (0.0-0.4) th/mm3 Baso # (Auto) 0.0 (0.0-0.2) th/mm3 WBC Differential . Differential Comment Auto diff final PT 9.6 L (9.8-11.6) sec INR 0.9 Ratio APTT 25.1 (24.3-30.1) sec Sodium 143 (136-145) meq/L Potassium 4.1 (3.5-5.1) meq/L Chloride 108 H (98-107) meq/L Carbon Dioxide 28.2 (21.0-32.0) meq/L Anion Gap 7 (5-15) meq/L BUN 23 H (7-18) mg/dL Creatinine 0.91 (0.50-1.00) mg/dL Estimated GFR 59 L (>89) mL/min Random Glucose 78 (74-106) mg/dL Calcium 9.0 (8.5-10.1) mg/dL Magnesium 2.0 (1.5-2.5) mg/dL Total Bilirubin 0.3 (0.2-1.0) mg/dL AST 16 (15-37) U/L ALT 19 (10-53) U/L Alkaline Phosphatase 62 (45-117) U/L Total Creatine Kinase 62 (26-192) U/L Troponin I Less than 0.02 L (0.02-0.05) ng/mL Total Protein 6.8 (6.4-8.2) g/dL Albumin 3.4 (3.4-5.0) g/dL Lipase 168 (73-393) U/L Urine Color (Yellw/Straw) Urine Clarity (Clear) Urine pH (5.0-8.5) Ur Specific [place] (1.002-1.035) Urine Protein (Neg-Trace) mg/dL Urine Glucose (UA) (Negative) mg/dL Urine Ketones (Negative) mg/dL Urine Occult Blood (Negative) Urine Nitrate (Negative) Urine Bilirubin (Negative) Urine Urobilinogen (Less than 2) mg/dL Ur Leukocyte Esterase (Negative) Urine RBC (0-3) /hpf Urine WBC (0-5) /hpf Micro UA Comment Ur Microscopic Review Urine Culture Comments 04/05/18 04/05/18 04/05/18 Range/Units 03:30 03:30 06:15 WBC (4.0-11.0) th/mm3 RBC (4.00-5.30) mil/mm3 Hgb (11.6-15.3) gm/dL Hct (35.0-46.0) % MCV (80.0-100.0) fL MCH (27.0-34.0) pg MCHC (32.0-36.0) % RDW (11.6-17.2) % Plt Count (150-450) th/mm3 MPV (7.0-11.0) fL Neut % (Auto) (16.0-70.0) % Lymph % (Auto) (9.0-44.0) % [place] % (Auto) (0.0-8.0) % Eos % (Auto) (0.0-4.0) % Baso % (Auto) (0.0-2.0) % Neut # (Auto) (1.8-7.7) th/mm3 Lymph # (Auto) (1.0-4.8) th/mm3 [place] # (Auto) (0.0-0.9) th/mm3 Eos # (Auto) (0.0-0.4) th/mm3 Baso # (Auto) (0.0-0.2) th/mm3 WBC Differential Differential Comment PT (9.8-11.6) sec INR Ratio APTT (24.3-30.1) sec Sodium (136-145) meq/L Potassium (3.5-5.1) meq/L Chloride (98-107) meq/L Carbon Dioxide (21.0-32.0) meq/L Anion Gap (5-15) meq/L BUN (7-18) mg/dL Creatinine (0.50-1.00) mg/dL Estimated GFR (>89) mL/min Random Glucose (74-106) mg/dL Calcium (8.5-10.1) mg/dL Magnesium (1.5-2.5) mg/dL Total Bilirubin (0.2-1.0) mg/dL AST (15-37) U/L ALT (10-53) U/L Alkaline Phosphatase (45-117) U/L Total Creatine Kinase 51 49 (26-192) U/L Troponin I 0.04 0.03 (0.02-0.05) ng/mL Total Protein (6.4-8.2) g/dL Albumin (3.4-5.0) g/dL Lipase (73-393) U/L Urine Color Yellow (Yellw/Straw) Urine Clarity Clear (Clear) Urine pH 5.0 (5.0-8.5) Ur Specific [place] 1.048 H (1.002-1.035) Urine Protein Negative (Neg-Trace) mg/dL Urine Glucose (UA) Negative (Negative) mg/dL Urine Ketones Negative (Negative) mg/dL Urine Occult Blood Negative (Negative) Urine Nitrate Negative (Negative) Urine Bilirubin Negative (Negative) Urine Urobilinogen Less than 2 (Less than 2) mg/dL Ur Leukocyte Esterase Negative (Negative) Urine RBC 1 (0-3) /hpf Urine WBC 1 (0-5) /hpf Micro UA Comment Culture not ind Ur Microscopic Review Not Reportable Urine Culture Comments Culture not ind 04/06/18 04/06/18 04/06/18 Range/Units 06:36 06:36 06:36 WBC 5.0 (4.0-11.0) th/mm3 RBC 4.71 (4.00-5.30) mil/mm3 Hgb 14.2 (11.6-15.3) gm/dL Hct 42.7 (35.0-46.0) % MCV 90.5 (80.0-100.0) fL MCH 30.2 (27.0-34.0) pg MCHC 33.4 (32.0-36.0) % RDW 14.2 (11.6-17.2) % Plt Count 194 (150-450) th/mm3 MPV 7.5 (7.0-11.0) fL Neut % (Auto) 59.4 (16.0-70.0) % Lymph % (Auto) 29.0 (9.0-44.0) % [place] % (Auto) 10.3 H (0.0-8.0) % Eos % (Auto) 0.9 (0.0-4.0) % Baso % (Auto) 0.4 (0.0-2.0) % Neut # (Auto) 2.9 (1.8-7.7) th/mm3 Lymph # (Auto) 1.4 (1.0-4.8) th/mm3 [place] # (Auto) 0.5 (0.0-0.9) th/mm3 Eos # (Auto) 0.0 (0.0-0.4) th/mm3 Baso # (Auto) 0.0 (0.0-0.2) th/mm3 WBC Differential . Differential Comment Auto diff final PT 10.7 (9.8-11.6) sec INR 1.1 Ratio APTT (24.3-30.1) sec Sodium 142 (136-145) meq/L Potassium 3.7 (3.5-5.1) meq/L Chloride 109 H (98-107) meq/L Carbon Dioxide 24.2 (21.0-32.0) meq/L Anion Gap 9 (5-15) meq/L BUN 19 H (7-18) mg/dL Creatinine 0.70 (0.50-1.00) mg/dL Estimated GFR 80 L (>89) mL/min Random Glucose 102 (74-106) mg/dL Calcium 8.7 (8.5-10.1) mg/dL Magnesium (1.5-2.5) mg/dL Total Bilirubin (0.2-1.0) mg/dL AST (15-37) U/L ALT (10-53) U/L Alkaline Phosphatase (45-117) U/L Total Creatine Kinase (26-192) U/L Troponin I (0.02-0.05) ng/mL Total Protein (6.4-8.2) g/dL Albumin (3.4-5.0) g/dL Lipase (73-393) U/L Urine Color (Yellw/Straw) Urine Clarity (Clear) Urine pH (5.0-8.5) Ur Specific [place] (1.002-1.035) Urine Protein (Neg-Trace) mg/dL Urine Glucose (UA) (Negative) mg/dL Urine Ketones (Negative) mg/dL Urine Occult Blood (Negative) Urine Nitrate (Negative) Urine Bilirubin (Negative) Urine Urobilinogen (Less than 2) mg/dL Ur Leukocyte Esterase (Negative) Urine RBC (0-3) /hpf Urine WBC (0-5) /hpf Micro UA Comment Ur Microscopic Review Urine Culture Comments Imaging Data Radiologist's impression: Chest X-Ray 04/04/18 21:15 CONCLUSION: 1. Status post interval median sternotomy. 2. No acute cardiopulmonary disease. Thoracic Aorta CT 04/04/18 22:06 CONCLUSION: 1. No aortic dissection as questioned. 2. Moderate coronary artery calcifications. 3. Mildly ectatic descending thoracic aorta measuring up to 3.2 cm. 4. Heavily calcified common iliac arteries with focal moderate stenosis of the right common iliac origin. 5. Subcentimeter bilateral adrenal nodules with indeterminate density. These appear unchanged from 2017 exam and probably benign. 6. Ancillary findings include colonic diverticulosis and degenerative changes of the thoracolumbar spine. ECG Data EKG Prior to Arrival: No Attestation: I personally reviewed and interpreted this ECG as follows: Prior ECG tracings: not available for review Interpretation: EKG taken at 2051 hrs., shows sinus rhythm at 70 bpm, with QRS morphology and a bundle branch block pattern, which is similar to prior tracing of October 20, 2016. There are no acute ST-T wave changes, with flat ST segments , upright T waves throughout, no ectopy is noted. IA interval 148 ms, QRS interval 146 ms, which is prolonged;, QT interval is stable at 452 ms corrected. QRS axis normal at 59 degrees. This is an unremarkable tracing. Discharge Plan Discharge Disposition Patient Disposition: 30 Still Patient Discharge Condition Condition: Stable Discharge Details Diagnosis: Chest pain Physicians Team ED Provider: Josue Mast ED Midlevel Provider: Catherine Lara Primary Care Provider: Huey Rodriges Attending Provider: Ro Trinh Other Providers: [facility],Insurance ; Nicolette Barroso Status ED Status: Left Department Discharge Information Discharge Date/Time: 04/05/18 03:56
[2018-04-04 22:16] LABS: Alkaline Phosphatase 62 U/L (45-117); Total Protein 6.8 g/dL (6.4-8.2)
[2018-04-04 22:17] LABS: Creatine Kinase 62 U/L (26-192)
--- NOTE | 2018-04-04 23:24 | CT ---
EXAM DATE: 04/04/2018 10:49 PM EDT AGE/SEX: 82 years / Female INDICATIONS: Back and shoulder pain; rule out dissection. CLINICAL DATA: This is the patient's initial encounter. Patient reports that signs and symptoms have been present for 3 days and indicates a pain score of 7/10. MEDICAL/SURGICAL HISTORY: Cardiovascular disease. Hypertension. CABG. RADIATION DOSE: 16.87 CTDI (mGy) COMPARISON: [facility] [place]ULMON[place], 10/20/2016. . TECHNIQUE: Volumetric scanning was performed using a multi-row detector CT scanner during bolus infu [place] of 98 ml Omnipaque 350 (iohexol) nonionic water-soluble contrast as a single exam dose. The da ta was post processed with a variety of visualization algorithms including full volume maximum intens ity projection, multi-planar sliding thin slab reformation, curved planar reformation, and surface re ndering techniques. Using automated exposure control and adjustment of the mA and/or kV according to patient size, radiation dose was kept as low as reasonably achievable to obtain optimal diagnostic q uality images. DICOM format image data is available electronically for review and comparison. FINDINGS: Angiographic Findings: Ascending: Normal in [place] without evidence for dissection. Arch: Normal 3 vessel arch anatomy. Mild calcified plaque at the origin of the proximal arch vessels without significant stenosis. Arch is normal in caliber without dissection. Descending: Mildly ectatic measuring up to 3.2 cm without evidence for dissection. Abdominal Aorta: Normal in caliber without significant flow limiting stenosis or dissection. Iliacs: Heavily calcified common iliac arteries bilaterally. Focal moderate stenosis of the right com mon iliac origin secondary to eccentric bulky calcified plaque. Diffuse mild stenosis of the common i liac arteries bilaterally. External iliac arteries are patent. Internal iliac arteries are diffusely diseased. Visualized femoral arteries are patent. Renal Arteries: Minimal calcified plaque at the origin of the renal arteries which are otherwise murray nt. Mesenteric Arteries: Mild stenosis of the celiac and SMA origins secondary to calcified plaque. KANDACE i s patent.: General Findings: LUNGS: Minimal senescent changes including subtle groundglass opacities and scarring at the lung bas es. PLEURA: No effusion, significant pleural thickening or pneumothorax. MEDIASTINUM: Heart is unremarkable without pericardial effusion . Moderate coronary artery calcifica tions..No evidence of mediastinal or hilar adenopathy. LIVER: The liver has a homogeneous density without space-occupying lesion. There is no dilation of t he biliary tree. SPLEEN: Homogeneous density without enlargement. PANCREAS: Unremarkable without mass or calcification. KIDNEYS: Kidneys demonstrate symmetrical enhancement and are symmetrical in size without evidence fo r radiopaque renal calculi or hydronephrosis. ADRENAL GLANDS: Subcentimeter nodule in the right adrenal gland with indeterminate density. BOWEL/MESENTERY: Moderate sigmoid diverticulosis. Bowel otherwise appears unremarkable without evide nce for obstruction. No free fluid or drainable fluid collections. No free air. ABDOMINAL WALL: Diastasis recti. RETROPERITONEUM: No evidence of adenopathy in the retrocrural, para-aortic, or deep pelvic regions. BLADDER: Decompressed. REPRODUCTIVE: No abnormal masses or calcifications seen. BONY STRUCTURES: Degenerative changes of the thoracolumbar spine. No abnormal focal lytic or blastic bony lesions. CONCLUSION: 1. No aortic dissection as questioned. 2. Moderate coronary artery calcifications. 3. Mildly ectatic descending thoracic aorta measuring up to 3.2 cm. 4. Heavily calcified common iliac arteries with focal moderate stenosis of the right common iliac or igin. 5. Subcentimeter bilateral adrenal nodules with indeterminate density. These appear unchanged from 2 017 exam and probably benign. 6. Ancillary findings include colonic diverticulosis and degenerative changes of the thoracolumbar s pine. Electronically signed by: Teodoro Mancuso MD 04/04/2018 11:22 PM EDT
[2018-04-05] MEDS ORDERED: Acetaminophen 500 MG Tablet PO PRN (03:15)
[2018-04-05] MEDS ORDERED: Morphine Inj 4 MG/ML Vial IV.PUSH PRN (03:15)
[2018-04-05 03:43] LABS: Bilirubin,Urine Negative (Negative); Clarity,Urine Clear (Clear); Color,Urine Yellow (Yellw/Straw); Glucose,Urine (UA) Negative (Negative); Leukocyte Esterase,Urine Negative (Negative); Nitrite,Urine Negative (Negative); Specific Gravity,Urine 1.048 (1.002-1.035)
[2018-04-05 04:16] LABS: Troponin I 0.04 ng/mL (0.02-0.05)
[2018-04-05 07:31] LABS: Troponin I 0.03 ng/mL (0.02-0.05)
--- NOTE | 2018-04-05 09:40 | P.HPCA ---
History of Present Illness Primary Care Physician: Huey Rodriges MD Chief Complaint: Chest pain History of Present Illness: This is an 82-year-old female history of CAD status post CABG January 2017 while in [place] presented to ED with plan of chest pain. Patient describes her chest pain as an upper back discomfort that is similar to when she needs her stents in the past as well as when needing bypass in January of last year. Has been going on the last 4 nights. States happen almost every night at 7:00. She was diaphoretic and short of breath. Symptoms resolved within 5 minutes of taking nitroglycerin. Is said to see Dr. olson for first-time visit here shortly. Was on Plavix for a time but was bruising quite a bit and her physician took her off of the medication. Currently denies chest discomfort. History of CAD status post CABG. She had prior stents. Hypertension, hyperlipidemia. Denies diabetes. There is family history of CAD. She is smoking e-cigarettes. - Diagnosis (1) Chest pain (2) CAD (coronary artery disease) (3) Status post aorto-coronary artery bypass graft (4) Hypertension (5) Hyperlipidemia Review of Systems General: Patient denies fevers, chills, and recent travel. HEENT: Patient denies headache, sore throat, difficulty swallowing. Cardiovascular: Has the chest discomfort as mentioned above. Denies sensation of heart beating rapidly or irregularly. No syncope. She was diaphoretic. Respiratory: She was short of breath. Denies inspirational chest discomfort. Denies coughing wheezing or hemoptysis. GI: Patient denies nausea, vomiting, diarrhea, abdominal pain, bloody stools. Musculoskeletal: Patient denies joint pain or edema. Denies calf pain or edema. Neurovascular: Patient denies numbness, tingling, weakness in extremities. Denies headache. Endocrine: Denies polyuria and polydipsia. Hematologic: Denies easy bruising. Skin: Denies rash or itching. PMFSH - History History Provided By: Patient - Medical History Medical History: Medical History (Last Updated 04/04/18 @ 22:17 by KELSIE Cowart) History of kidney cancer CAD (coronary artery disease) HTN (hypertension), benign Hypothyroid - Surgical History Surgical History: Surgical History (Last Updated 04/04/18 @ 20:50 by Araseli Pineda) History of heart artery stent History of heart bypass surgery - Tobacco History Second Hand Smoke Exposure: No Tobacco Use In Past 30 Days: No Smoking Status: Current every day smoker Tobacco Type: E-Cigarettes - Alcohol History How Often Do You Have a Drink Containing Alcohol: Never - Substance Use History Substance History: No History of Abuse - Travel History Recent Travel in the USA Within the Last 8 Weeks: No Recent Travel Out of the Country Within the Last 8 Weeks: No - Immunization History Tetanus Immunization: Unsure Medications and Allergies Active Medications: Active Medications Acetaminophen (Tylenol) 500 mg PO Q4H PRN PRN Reason: HEADACHE Morphine Sulfate (Morphine Inj) 2 mg IV.PUSH Q4H PRN PRN Reason: PAIN SCALE 8 TO 10 Nitroglycerin (Nitrostat Sl) 0.4 mg SL Q5M PRN PRN Reason: CHEST PAIN Ondansetron HCl (Zofran Inj) 4 mg IV.PUSH Q6H PRN PRN Reason: NAUSEA Sodium Chloride (Ns Flush) 2 ml IV.FLUSH UNSCH PRN PRN Reason: FLUSH AFTER USING IV ACCESS Sodium Chloride (Ns Flush) 2 ml IV.FLUSH BID YANETH Sodium Chloride (Ns Flush) 2 ml IV.FLUSH PRN PRN PRN Reason: FLUSH AFTER USING IV ACCESS Allergies Allergy/AdvReac Type Severity Reaction Status Date / Time No Known Allergies Allergy Unverified 04/04/18 20:58 Home Medications Medication Instructions Recorded Confirmed Type alprazolam See Label Instructions .ROUTE 04/04/18 04/04/18 History .COMPLEX aspirin 81 mg PO DAILY 04/04/18 04/04/18 History coenzyme Q10 [Co Q-10] 200 mg PO DAILY 04/04/18 04/04/18 History enalapril maleate See Label Instructions .ROUTE 04/04/18 04/04/18 History .COMPLEX levothyroxine See Label Instructions .ROUTE 04/04/18 04/04/18 History .COMPLEX trazodone See Label Instructions .ROUTE 04/04/18 04/04/18 History .COMPLEX cholecalciferol (vitamin D3) 1,000 unit PO DAILY 04/05/18 04/05/18 History cyanocobalamin (vitamin B-12) 1,000 mcg PO DAILY 04/05/18 04/05/18 History pramipexole 0.5 mg PO DAILY 04/05/18 04/05/18 History rosuvastatin [Crestor] 40 mg PO DAILY 04/05/18 04/05/18 History Exam Vital signs: Vital Signs 04/04/18 20:54 04/04/18 21:18 04/04/18 22:35 Temperature Pulse Rate 74 Respiratory Rate 16 Blood Pressure 174/72 H Pulse Oximetry 94 L 95 95 04/04/18 23:00 04/05/18 03:15 04/05/18 04:40 Temperature 97.7 F Pulse Rate 64 54 L Respiratory Rate 16 16 21 Blood Pressure 140/64 128/62 168/80 H Pulse Oximetry 95 97 04/05/18 04:57 04/05/18 06:35 04/05/18 07:13 Temperature Pulse Rate 55 L Respiratory Rate Blood Pressure Pulse Oximetry 98 92 L Intake & Output 04/04/18 04/05/18 04/05/18 18:59 06:59 18:59 Weight 73.93 kg Other: # Voids 1 Weight On Admission 73.93 kg Narrative: GENERAL: This is a well-nourished, well-developed patient, in no apparent distress. Patient speaks in clear complete sentences. Patient is pleasant. HEENT: Head is atraumatic and normocephalic. Neck is supple without lymphadenopathy and trachea is midline. No JVD or carotid bruits. CARDIOVASCULAR: Regular rate and rhythm without murmurs, gallops, or rubs. RESPIRATORY: Clear to auscultation. Breath sounds equal bilaterally. No wheezes , rales, or rhonchi. Chest wall is nontender. No use of accessory muscles. GASTROINTESTINAL: Abdomen is nontender, nondistended. Abdomen soft. No obvious pulsatile mass or bruit. No CVA tenderness. Strong femoral pulses bilaterally. Normal bowel sounds in all quadrants. MUSCULOSKELETAL: Patient is moving upper and lower extremities freely. No calf tenderness or edema, no Homans sign. Strong pulses in upper and lower extremities. NEUROLOGICAL: Patient is alert and oriented. Cranial nerves 2-12 are grossly intact. No focal deficits and speech is clear. SKIN: No rash and turgor is normal. Results 04/04/18 21:18 04/04/18 21:18 Cardiac Enzymes 04/04/18 04/05/18 04/05/18 Range/Units 21:18 03:30 06:15 AST 16 (15-37) U/L Troponin I Less than 0.02 L 0.04 0.03 (0.02-0.05) ng/mL Coagulation 04/04/18 Range/Units 21:18 PT 9.6 L (9.8-11.6) sec APTT 25.1 (24.3-30.1) sec CBC 04/04/18 Range/Units 21:18 WBC 4.5 (4.0-11.0) th/mm3 RBC 4.72 (4.00-5.30) mil/mm3 Hgb 14.3 (11.6-15.3) gm/dL Hct 43.2 (35.0-46.0) % Plt Count 201 (150-450) th/mm3 Neut # (Auto) 2.1 (1.8-7.7) th/mm3 Lymph # (Auto) 1.7 (1.0-4.8) th/mm3 [place] # (Auto) 0.6 (0.0-0.9) th/mm3 Eos # (Auto) 0.1 (0.0-0.4) th/mm3 Baso # (Auto) 0.0 (0.0-0.2) th/mm3 Comprehensive Metabolic Panel 04/04/18 Range/Units 21:18 Sodium 143 (136-145) meq/L Potassium 4.1 (3.5-5.1) meq/L Chloride 108 H (98-107) meq/L Carbon Dioxide 28.2 (21.0-32.0) meq/L BUN 23 H (7-18) mg/dL Creatinine 0.91 (0.50-1.00) mg/dL Calcium 9.0 (8.5-10.1) mg/dL AST 16 (15-37) U/L ALT 19 (10-53) U/L Alkaline Phosphatase 62 (45-117) U/L Total Protein 6.8 (6.4-8.2) g/dL Albumin 3.4 (3.4-5.0) g/dL Intake and Output 04/04/18 04/05/18 04/05/18 22:59 06:59 14:59 Other: # Voids 1 Weight 73.936 kg 73.93 kg Weight On Admission 73.93 kg - Imaging and Cardiology Imaging: Impressions Chest X-Ray 04/04/18 21:15 CONCLUSION: 1. Status post interval median sternotomy. 2. No acute cardiopulmonary disease. Thoracic Aorta CT 04/04/18 22:06 CONCLUSION: 1. No aortic dissection as questioned. 2. Moderate coronary artery calcifications. 3. Mildly ectatic descending thoracic aorta measuring up to 3.2 cm. 4. Heavily calcified common iliac arteries with focal moderate stenosis of the right common iliac origin. 5. Subcentimeter bilateral adrenal nodules with indeterminate density. These appear unchanged from 2017 exam and probably benign. 6. Ancillary findings include colonic diverticulosis and degenerative changes of the thoracolumbar spine. EKG interpretations - EKG EKG shows: sinus rhythm (Sinus rhythm with right bundle branch block. Nonspecific T wave changes.) Caprini VTE Risk Assessment Caprini VTE Risk Assessment: Moderate/High Risk (score >= 2) Caprini Risk Assessment Model: Point Value = 1 Point Value = 2 Point Value = 3 Point Value = 5 Age 41-60 Minor surgery BMI > 25 kg/m2 Swollen legs Varicose veins or History of unexplained or recurrent spontaneous Oral contraceptives or hormone replacement Sepsis (< 1 month) Serious lung disease, including pneumonia (< 1 month) Abnormal pulmonary function Acute myocardial infarction Congestive heart failure (< 1 month) History of inflammatory bowel disease Medical patient at bed rest Age 61-74 Arthroscopic surgery Major open surgery (> 45 min) Laparoscopic surgery (> 45 min) Malignancy Confined to bed (> 72 hours) Immobilizing plaster cast Central venous access Age >= 75 History of VTE Family history of VTE Factor V Leiden Prothrombin [id number] Lupus anticoagulant Anticardiolipin antibodies Elevated serum homocysteine Heparin-induced thrombocytopenia Other congenital or acquired thrombophilia Stroke (< 1 month) Elective arthroplasty Hip, pelvis, or leg fracture Acute spinal cord injury (< 1 month) Prophylaxis Regimen: Total Risk Factor Score Risk Level Prophylaxis Regimen 0-1 Low Early ambulation 2 Moderate Order ONE of the following: *Sequential Compression Device (SCD) *Heparin 5000 units SQ BID 3-4 Higher Order ONE of the following medications: *Heparin 5000 units SQ TID *Enoxaparin/Lovenox 40 mg SQ daily (WT < 150 kg, CrCl > 30 mL/min) *Enoxaparin/Lovenox 30 mg SQ daily (WT < 150 kg, CrCl > 10-29 mL/min) *Enoxaparin/Lovenox 30 mg SQ BID (WT < 150 kg, CrCl > 30 mL/min) AND/OR *Sequential Compression Device (SCD) 5 or more Highest Order ONE of the following medications: *Heparin 5000 units SQ TID (Preferred with Epidurals) *Enoxaparin/Lovenox 40 mg SQ daily (WT < 150 kg, CrCl > 30 mL/min) *Enoxaparin/Lovenox 30 mg SQ daily (WT < 150 kg, CrCl > 10-29 mL/min) *Enoxaparin/Lovenox 30 mg SQ BID (WT < 150 kg, CrCl > 30 mL/min) AND *Sequential Compression Device (SCD) Assessment and Plan - Assessment (1) Chest pain Code(s): R07.9 - Status: Acute (2) CAD (coronary artery disease) Code(s): I25.10 - Status: Acute (3) Status post aorto-coronary artery bypass graft Code(s): Z95.1 - Status: Acute (4) Hypertension Code(s): I10 - Status: Acute (5) Hyperlipidemia Code(s): E78.5 - Status: Acute - Plan * Chest pain: Patient has had serial cardiac enzymes and EKGs. She was seen by Dr. Jermaine Terrell of cardiology in the chest pain center. Her story does seem somewhat concerning as her typical anginal type of discomfort. Dr. Terrell spoke with Dr. Barroso. Patient will be admitted to hospitalist services and Dr. Barroso will see the patient today and likely perform heart catheterization on her tomorrow. Nitrol ointment will be applied. We will resume her medications. She really does not recall being on statin medication. Also patient has been instructed on the importance of no longer using e-cigarettes. * CAD: Patient has history of CABG. Likely heart catheterization by Dr. Wakefield tomorrow. * Hypertension: Continue medication. H&P: Quality - VTE Deep Vein Thrombosis/Pulmonary Embolism Present on Admission: No (1) Chest pain Qualifiers: Chest pain type: unspecified Qualified Code(s): R07.9 - Chest pain, unspecified
[2018-04-05] MEDS: Aspirin 325 MG Tablet PO SCH (12:39)
--- NOTE | 2018-04-05 12:56 | P.PNADD ---
Addendum to Inpatient Note Additional information: Patient was admitted for chest pain rule out. Dr. Barroso plans to do cardiac cath tomorrow per Chest pain center. Patient is currently doing well. No acute concerns. Discussed with Chest pain center PA - we will start patient on Lipitor.
[2018-04-05] MEDS ORDERED: fentaNYL Citrate Inj 100 MCG/2 ML Ampul IV.PUSH SCH (14:15)
[2018-04-05] MEDS ORDERED: Sod Chloride 0.9% Inj 1,000 ML IV.CONT SCH (14:15)
--- NOTE | 2018-04-05 14:41 | P.CONCA ---
History of Present Illness Service: Cardiology Consult date: 04/05/18 Primary Care Provider: Huey Rodriges MD Family Provider: Huey Rodriges MD Chief Complaint: Chest pain History of Present Illness: Pleasant 82-year-old female who was scheduled to see us as a new patient next week in the office with a past cardiac history of CAD status post CABG January 2017 while in [place]. Patient reports that she developed diaphoresis and Chest pain that radiated to her upper back and shoulders yesterday symptoms are similar to the pain that she experienced prior to his stents and MN approximately 6 years ago. She reports symptoms were relieved by nitroglycerin. Patient also has a significant past medical history of renal cell carcinoma status post laser removal. She currently denies any chest pain shortness of breath palpitations or dizziness. She is very concerned, symptoms are the same as what she experienced prior to her MN. All options discussed in detail with patient. She understands risks and wishes to proceed with heart catheterization. EKG reviewed sinus rhythm right bundle branch block. Review of Systems All other systems reviewed negative except as stated in HPI Cardiovascular: Reports chest pain at rest, Reports chest pain with activity, Reports excessive sweating PMFSH - History History Provided By: Patient - Medical History Medical History: Medical History (Last Updated 04/04/18 @ 22:17 by KELSIE Cowart) History of kidney cancer CAD (coronary artery disease) HTN (hypertension), benign Hypothyroid - Surgical History Surgical History: Surgical History (Last Updated 04/04/18 @ 20:50 by Araseli Pineda) History of heart artery stent History of heart bypass surgery - Tobacco History Second Hand Smoke Exposure: No Tobacco Use In Past 30 Days: No Smoking Status: Current every day smoker Tobacco Type: E-Cigarettes - Alcohol History How Often Do You Have a Drink Containing Alcohol: Never - Substance Use History Substance History: No History of Abuse - Travel History Recent Travel in the [place] Within the Last 8 Weeks: No Recent Travel Out of the Country Within the Last 8 Weeks: No - Immunization History Tetanus Immunization: Unsure Medications and Allergies Allergies Allergy/AdvReac Type Severity Reaction Status Date / Time No Known Allergies Allergy Unverified 04/04/18 20:58 Home Medications Medication Instructions Recorded Confirmed Type alprazolam 0.5 mg PO BID 04/04/18 04/05/18 History aspirin 81 mg PO DAILY 04/04/18 04/04/18 History coenzyme Q10 [Co Q-10] 200 mg PO DAILY 04/04/18 04/04/18 History enalapril maleate See Label Instructions .ROUTE 04/04/18 04/04/18 History .COMPLEX levothyroxine See Label Instructions .ROUTE 04/04/18 04/04/18 History .COMPLEX trazodone See Label Instructions .ROUTE 04/04/18 04/04/18 History .COMPLEX cholecalciferol (vitamin D3) 1,000 unit PO DAILY 04/05/18 04/05/18 History cyanocobalamin (vitamin B-12) 1,000 mcg PO DAILY 04/05/18 04/05/18 History pramipexole 0.5 mg PO DAILY 04/05/18 04/05/18 History rosuvastatin [Crestor] 40 mg PO DAILY 04/05/18 04/05/18 History Active Medications: Active Medications Acetaminophen (Tylenol) 500 mg PO Q4H PRN PRN Reason: HEADACHE Aspirin (Aspirin) 325 mg PO DAILY [facility] Last Admin: 04/05/18 12:39 Dose: 325 mg Atorvastatin Calcium (Lipitor) 80 mg PO DAILY [facility] Last Admin: 04/05/18 12:38 Dose: 80 mg Diphenhydramine HCl (Benadryl) 50 mg PO [employer] [facility] Stop: 04/09/18 14:14 Enalapril Maleate (Vasotec) 5 mg PO DAILY [facility] Last Admin: 04/05/18 12:39 Dose: 5 mg Fentanyl Citrate (Fentanyl Inj) 50 mcg IV.PUSH [employer] [facility] Stop: 04/09/18 14:14 Sodium Chloride (Ns Inj) 1,000 mls @ 30 mls/hr IV.CONT .Q24H [facility] Levothyroxine Sodium (Synthroid) 25 mcg PO DAILY@0600 [facility] Midazolam HCl (Versed Inj) 1 mg IV.PUSH [employer] [facility] Stop: 04/09/18 14:14 Morphine Sulfate (Morphine Inj) 2 mg IV.PUSH Q4H PRN PRN Reason: PAIN SCALE 8 TO 10 Nitroglycerin (Nitrostat Sl) 0.4 mg SL Q5M PRN PRN Reason: CHEST PAIN Nitroglycerin (Nitro-Bid 2% Oint) 0.5 inch TOPICAL Q6HR [facility] Last Admin: 04/05/18 12:38 Dose: 0.5 inch Ondansetron HCl (Zofran Inj) 4 mg IV.PUSH Q6H PRN PRN Reason: NAUSEA Pramipexole Dihydrochloride (Mirapex) 0.5 mg PO DAILY [facility] Last Admin: 04/05/18 13:08 Dose: 0.5 mg Sodium Chloride (Ns Flush) 2 ml IV.FLUSH UNSCH PRN PRN Reason: FLUSH AFTER USING IV ACCESS Sodium Chloride (Ns Flush) 2 ml IV.FLUSH BID [facility] Last Admin: 04/05/18 12:41 Dose: 2 ml Sodium Chloride (Ns Flush) 2 ml IV.FLUSH PRN PRN PRN Reason: FLUSH AFTER USING IV ACCESS Exam Vital signs: Vital Signs 04/04/18 20:54 04/04/18 21:18 04/04/18 22:35 Temperature Pulse Rate 74 Respiratory Rate 16 Blood Pressure 174/72 H Pulse Oximetry 94 L 95 95 04/04/18 23:00 04/05/18 03:15 04/05/18 04:40 Temperature 97.7 F Pulse Rate 64 54 L Respiratory Rate 16 16 21 Blood Pressure 140/64 128/62 168/80 H Pulse Oximetry 95 97 04/05/18 04:57 04/05/18 06:35 04/05/18 07:13 Temperature Pulse Rate 55 L Respiratory Rate Blood Pressure Pulse Oximetry 98 92 L 04/05/18 08:00 04/05/18 12:08 Temperature 97.9 F 98.2 F Pulse Rate 51 L 62 Respiratory Rate 12 20 Blood Pressure 169/74 H 148/66 H Pulse Oximetry 95 98 Intake & Output 04/04/18 04/05/18 04/05/18 18:59 06:59 18:59 Weight 73.93 kg Other: # Voids 1 Date of Last Bowel Movement 04/03/18 Weight On Admission 73.93 kg - Constitutional no acute distress - Routine HEENT Exam Head: Present: normocephalic Eye: Present: EOMI, PERRL, normal accommodation ENT: Present: mucous membranes moist - Routine Neck Exam Present: supple - Routine Respiratory Exam Present: CTA bilaterally - Routine Cardiovascular Exam Present: RRR - Routine Abdominal Exam Present: soft - Routine Skin Exam Present: intact - Routine Neurological Exam Present: alert, oriented X3 Results 04/04/18 21:18 04/04/18 21:18 Cardiac Enzymes 04/04/18 04/05/18 04/05/18 Range/Units 21:18 03:30 06:15 AST 16 (15-37) U/L Troponin I Less than 0.02 L 0.04 0.03 (0.02-0.05) ng/mL Coagulation 04/04/18 Range/Units 21:18 PT 9.6 L (9.8-11.6) sec APTT 25.1 (24.3-30.1) sec CBC 04/04/18 Range/Units 21:18 WBC 4.5 (4.0-11.0) th/mm3 RBC 4.72 (4.00-5.30) mil/mm3 Hgb 14.3 (11.6-15.3) gm/dL Hct 43.2 (35.0-46.0) % Plt Count 201 (150-450) th/mm3 Neut # (Auto) 2.1 (1.8-7.7) th/mm3 Lymph # (Auto) 1.7 (1.0-4.8) th/mm3 [place] # (Auto) 0.6 (0.0-0.9) th/mm3 Eos # (Auto) 0.1 (0.0-0.4) th/mm3 Baso # (Auto) 0.0 (0.0-0.2) th/mm3 Comprehensive Metabolic Panel 04/04/18 Range/Units 21:18 Sodium 143 (136-145) meq/L Potassium 4.1 (3.5-5.1) meq/L Chloride 108 H (98-107) meq/L Carbon Dioxide 28.2 (21.0-32.0) meq/L BUN 23 H (7-18) mg/dL Creatinine 0.91 (0.50-1.00) mg/dL Calcium 9.0 (8.5-10.1) mg/dL AST 16 (15-37) U/L ALT 19 (10-53) U/L Alkaline Phosphatase 62 (45-117) U/L Total Protein 6.8 (6.4-8.2) g/dL Albumin 3.4 (3.4-5.0) g/dL Intake and Output 04/04/18 04/05/18 04/05/18 22:59 06:59 14:59 Other: # Voids 1 Date of Last Bowel Movement 04/03/18 Weight 73.936 kg 73.93 kg Weight On Admission 73.93 kg - Imaging and Cardiology Imaging: Impressions Chest X-Ray 04/04/18 21:15 CONCLUSION: 1. Status post interval median sternotomy. 2. No acute cardiopulmonary disease. Thoracic Aorta CT 04/04/18 22:06 CONCLUSION: 1. No aortic dissection as questioned. 2. Moderate coronary artery calcifications. 3. Mildly ectatic descending thoracic aorta measuring up to 3.2 cm. 4. Heavily calcified common iliac arteries with focal moderate stenosis of the right common iliac origin. 5. Subcentimeter bilateral adrenal nodules with indeterminate density. These appear unchanged from 2017 exam and probably benign. 6. Ancillary findings include colonic diverticulosis and degenerative changes of the thoracolumbar spine. EKG interpretations - EKG EKG results cardiology: sinus rhythm Assessment and Plan - Plan Assessment Chest pain ASHD HTN Plan Status post coronary artery bypass grafting January 2017 CABG x2, reverse saphenous vein to OM and PDA, left internal mammary harvested and intended to be used, LAD was an extremely small vessel 1 mm with no graftable lumen. -Patient has had serial cardiac enzymes and EKGs. She was seen by Dr. Jermaine Terrell of cardiology in the chest pain center. Symptoms are the same as what she experienced prior to MN in the past, will plan to proceed with heart cath tomorrow. Will hold NPO after midnight. All risks reviewed including stroke foreseen and unforeseen complications. Pt understands. (HJ) -On statin and ASA, will hold off on BB for now due to bradycardia. -BP is controlled. Patient was seen and evaluated with Dr. Barroso who completed [id number] encounter and physical exam and participated in care management and decision- making The exam, history, and the medical decision-making described in the above note were completed with the assistance of the mid-level provider. I reviewed and agree with the findings presented. I attest that I had a [id number] encounter with the patient on the same day, and personally performed and documented my assessment and findings in the medical record. Will proceed in am
--- NOTE | 2018-04-05 15:10 | ECG ---
Date Performed: 04/05/2018 Time Performed: 03:31:10 PTAGE: 82 years EKG: Sinus rhythm RIGHT BUNDLE BRANCH BLOCK ABNORMAL ECG PREVIOUS TRACING : 04/04/2018 20.51 Since previous tracing, no significant change noted DOCTOR: Jermaine Terrell Interpretating Date/Time 04/07/2018 07:23:00
--- NOTE | 2018-04-05 15:11 | ECG ---
Date Performed: 04/04/2018 Time Performed: 20:51:47 PTAGE: 82 years EKG: Sinus rhythm RIGHT BUNDLE BRANCH BLOCK ABNORMAL ECG NO PREVIOUS TRACING DOCTOR: Jermaine Terrell Interpretating Date/Time 04/05/2018 15:09:45
--- NOTE | 2018-04-05 15:12 | ECG ---
Date Performed: 04/05/2018 Time Performed: 06:20:44 PTAGE: 82 years EKG: SINUS BRADYCARDIA RIGHT BUNDLE BRANCH BLOCK ABNORMAL ECG PREVIOUS TRACING : 04/04/2018 20.51 Since previous tracing, no significant change noted DOCTOR: Jermaine Terrell Interpretating Date/Time 04/05/2018 15:10:13
[2018-04-05] MEDS ORDERED: traZODone 50 MG Tablet PO SCH (22:00)
[2018-04-05] MEDS: ALPRAZolam 0.5 MG Tablet PO SCH (23:54)
[2018-04-06 07:35] LABS: Baso % (Auto) 0.4 % (0.0-2.0); Eos % (Auto) 0.9 % (0.0-4.0); Hematocrit 42.7 % (35.0-46.0); Hemoglobin 14.2 gm/dL (11.6-15.3); Lymph # (Auto) 1.4 th/mm3 (1.0-4.8); Mean Corpuscular HGB Conc 33.4 % (32.0-36.0); Mean Corpuscular Hemoglobin 30.2 pg (27.0-34.0); Mean Corpuscular Volume 90.5 fL (80.0-100.0); Mean Platelet Volume 7.5 fL (7.0-11.0); Mono # (Auto) 0.5 th/mm3 (0.0-0.9); Mono % (Auto) 10.3 % (0.0-8.0); Neut # (Auto) 2.9 th/mm3 (1.8-7.7); Neut % (Auto) 59.4 % (16.0-70.0); Platelet Count 194 th/mm3 (150-450); Red Blood Count 4.71 mil/mm3 (4.00-5.30); Red Cell Distribution Width 14.2 % (11.6-17.2)
[2018-04-06 07:55] LABS: INR 1.1 Ratio; Prothrombin Time 10.7 sec (9.8-11.6)
[2018-04-06 08:07] LABS: Calcium 8.7 mg/dL (8.5-10.1); Carbon Dioxide 24.2 meq/L (21.0-32.0); Potassium 3.7 meq/L (3.5-5.1)
[2018-04-06] MEDS: ALPRAZolam 0.5 MG Tablet PO SCH (08:45)
[2018-04-06] MEDS: Aspirin 325 MG Tablet PO SCH (08:45)
--- NOTE | 2018-04-06 10:19 | P.PNCA ---
Subjective Interval history: Resting in bed, no chest pain overnight. Nitro paste in place. Pending cath today. All questions answered. Medications and Allergies Active Medications: Active Medications Acetaminophen (Tylenol) 500 mg PO Q4H PRN PRN Reason: HEADACHE Alprazolam (Xanax) 0.5 mg PO BID [facility] Last Admin: 04/06/18 08:45 Dose: 0.5 mg Aspirin (Aspirin) 325 mg PO DAILY [facility] Last Admin: 04/06/18 08:45 Dose: 325 mg Atorvastatin Calcium (Lipitor) 80 mg PO DAILY [facility] Last Admin: 04/06/18 08:45 Dose: 80 mg Diphenhydramine HCl (Benadryl) 50 mg PO DIETARY COOK [facility] Stop: 04/09/18 14:14 Enalapril Maleate (Vasotec) 5 mg PO DAILY [facility] Last Admin: 04/06/18 08:46 Dose: 5 mg Fentanyl Citrate (Fentanyl Inj) 50 mcg IV.PUSH DIETARY COOK [facility] Stop: 04/09/18 14:14 Sodium Chloride (Ns Inj) 1,000 mls @ 30 mls/hr IV.CONT .Q24H [facility] Last Admin: 04/05/18 20:00 Dose: 30 mls/hr Levothyroxine Sodium (Synthroid) 25 mcg PO DAILY@0600 [facility] Midazolam HCl (Versed Inj) 1 mg IV.PUSH DIETARY COOK [facility] Stop: 04/09/18 14:14 Morphine Sulfate (Morphine Inj) 2 mg IV.PUSH Q4H PRN PRN Reason: PAIN SCALE 8 TO 10 Nitroglycerin (Nitrostat Sl) 0.4 mg SL Q5M PRN PRN Reason: CHEST PAIN Nitroglycerin (Nitro-Bid 2% Oint) 0.5 inch TOPICAL Q6HR [facility] Last Admin: 04/06/18 05:30 Dose: 0.5 inch Ondansetron HCl (Zofran Inj) 4 mg IV.PUSH Q6H PRN PRN Reason: NAUSEA Pramipexole Dihydrochloride (Mirapex) 0.5 mg PO DAILY [facility] Last Admin: 04/06/18 08:45 Dose: 0.5 mg Sodium Chloride (Ns Flush) 2 ml IV.FLUSH UNSCH PRN PRN Reason: FLUSH AFTER USING IV ACCESS Last Admin: 04/05/18 23:55 Dose: 2 ml Sodium Chloride (Ns Flush) 2 ml IV.FLUSH BID [facility] Last Admin: 04/06/18 08:46 Dose: 2 ml Sodium Chloride (Ns Flush) 2 ml IV.FLUSH PRN PRN PRN Reason: FLUSH AFTER USING IV ACCESS Trazodone HCl (Desyrel) 50 mg PO HS [facility] Last Admin: 04/05/18 23:54 Dose: 50 mg Allergies Allergy/AdvReac Type Severity Reaction Status Date / Time No Known Allergies Allergy Unverified 04/04/18 20:58 Home Medications Medication Instructions Recorded Confirmed Type alprazolam 0.5 mg PO BID 04/04/18 04/05/18 History aspirin 81 mg PO DAILY 04/04/18 04/04/18 History coenzyme Q10 [Co Q-10] 200 mg PO DAILY 04/04/18 04/04/18 History enalapril maleate See Label Instructions .ROUTE 04/04/18 04/04/18 History .COMPLEX levothyroxine See Label Instructions .ROUTE 04/04/18 04/04/18 History .COMPLEX trazodone See Label Instructions .ROUTE 04/04/18 04/04/18 History .COMPLEX cholecalciferol (vitamin D3) 1,000 unit PO DAILY 04/05/18 04/05/18 History cyanocobalamin (vitamin B-12) 1,000 mcg PO DAILY 04/05/18 04/05/18 History pramipexole 0.5 mg PO DAILY 04/05/18 04/05/18 History rosuvastatin [Crestor] 40 mg PO DAILY 04/05/18 04/05/18 History Physical Exam Vital signs: Vital Signs 04/05/18 12:08 04/05/18 20:00 04/06/18 00:00 Temperature 98.2 F 98.5 F 98.3 F Pulse Rate 62 64 58 L Respiratory Rate 20 16 16 Blood Pressure 148/66 H 119/70 134/49 L Pulse Oximetry 98 95 04/06/18 04:00 04/06/18 07:35 04/06/18 08:55 Temperature 97.7 F 97.8 F Pulse Rate 55 L 56 L 58 L Respiratory Rate 16 19 Blood Pressure 109/56 L 115/55 L Pulse Oximetry 92 L Intake & Output 04/05/18 04/06/18 04/06/18 18:59 06:59 18:59 Other: # Voids 1 Date of Last Bowel Movement 04/03/18 04/05/18 - Constitutional no acute distress - Routine HEENT Exam Head: Present: atraumatic Eye: Present: PERRL, normal accommodation ENT: Present: mucous membranes moist - Routine Neck Exam Present: supple - Routine Respiratory Exam Present: CTA bilaterally - Routine Cardiovascular Exam Present: RRR - Routine Abdominal Exam Present: soft - Routine Skin Exam Present: intact - Routine Neurological Exam Present: alert, oriented X3 - Detailed Neurological Exam: Coma Scale Eye Opening: Spontaneous Verbal Response: Oriented Motor Response: Obey commands [place] Coma Scale Total: 15 - Routine Psychiatric Exam Present: normal affect Results 04/06/18 06:36 04/06/18 06:36 Cardiac Enzymes 04/04/18 04/05/18 04/05/18 Range/Units 21:18 03:30 06:15 AST 16 (15-37) U/L Troponin I Less than 0.02 L 0.04 0.03 (0.02-0.05) ng/mL Coagulation 04/04/18 04/06/18 Range/Units 21:18 06:36 PT 9.6 L 10.7 (9.8-11.6) sec APTT 25.1 (24.3-30.1) sec CBC 04/04/18 04/06/18 Range/Units 21:18 06:36 WBC 4.5 5.0 (4.0-11.0) th/mm3 RBC 4.72 4.71 (4.00-5.30) mil/mm3 Hgb 14.3 14.2 (11.6-15.3) gm/dL Hct 43.2 42.7 (35.0-46.0) % Plt Count 201 194 (150-450) th/mm3 Neut # (Auto) 2.1 2.9 (1.8-7.7) th/mm3 Lymph # (Auto) 1.7 1.4 (1.0-4.8) th/mm3 [place] # (Auto) 0.6 0.5 (0.0-0.9) th/mm3 Eos # (Auto) 0.1 0.0 (0.0-0.4) th/mm3 Baso # (Auto) 0.0 0.0 (0.0-0.2) th/mm3 Comprehensive Metabolic Panel 04/04/18 04/06/18 Range/Units 21:18 06:36 Sodium 143 142 (136-145) meq/L Potassium 4.1 3.7 (3.5-5.1) meq/L Chloride 108 H 109 H (98-107) meq/L Carbon Dioxide 28.2 24.2 (21.0-32.0) meq/L BUN 23 H 19 H (7-18) mg/dL Creatinine 0.91 0.70 (0.50-1.00) mg/dL Calcium 9.0 8.7 (8.5-10.1) mg/dL AST 16 (15-37) U/L ALT 19 (10-53) U/L Alkaline Phosphatase 62 (45-117) U/L Total Protein 6.8 (6.4-8.2) g/dL Albumin 3.4 (3.4-5.0) g/dL Intake and Output 04/05/18 04/06/18 04/06/18 22:59 06:59 14:59 Other: # Voids 1 Date of Last Bowel Movement 04/05/18 - Imaging and Cardiology Imaging: Impressions Chest X-Ray 04/04/18 21:15 CONCLUSION: 1. Status post interval median sternotomy. 2. No acute cardiopulmonary disease. Thoracic Aorta CT 04/04/18 22:06 CONCLUSION: 1. No aortic dissection as questioned. 2. Moderate coronary artery calcifications. 3. Mildly ectatic descending thoracic aorta measuring up to 3.2 cm. 4. Heavily calcified common iliac arteries with focal moderate stenosis of the right common iliac origin. 5. Subcentimeter bilateral adrenal nodules with indeterminate density. These appear unchanged from 2017 exam and probably benign. 6. Ancillary findings include colonic diverticulosis and degenerative changes of the thoracolumbar spine. Assessment and Plan - Plan Assessment Chest pain ASHD HTN Plan Status post coronary artery bypass grafting January 2017 CABG x2, reverse saphenous vein to OM and PDA, left internal mammary harvested and intended to be used, LAD was an extremely small vessel 1 mm with no graftable lumen. -Will plan to proceed with heart cath today. Will hold NPO after midnight. All risks reviewed including stroke foreseen and unforeseen complications. Pt understands. No chest pain overnight. Nitro paste in place. -On statin and ASA, will hold off on BB for now due to bradycardia. -BP is controlled. Patient was seen and evaluated with Dr. Barroso who completed [id number] encounter and physical exam and participated in care management and decision- making
[2018-04-06 12:11] VITALS: RESP 16; O2SAT 94
--- NOTE | 2018-04-06 12:36 | P.PN ---
Subjective Interval history: Follow-up for CAD, chest pain. Patient is currently doing well. Denies any chest pain, shortness of breath, fever or chills. She is a scheduled for cardiac catheterization this afternoon. Physical Exam Vital signs: Vital Signs 04/05/18 20:00 04/06/18 00:00 04/06/18 04:00 Temperature 98.5 F 98.3 F 97.7 F Pulse Rate 64 58 L 55 L Respiratory Rate 16 16 16 Blood Pressure 119/70 134/49 L 109/56 L Pulse Oximetry 95 04/06/18 07:35 04/06/18 08:55 04/06/18 12:10 Temperature 97.8 F 97.7 F Pulse Rate 56 L 58 L 52 L Respiratory Rate 19 16 Blood Pressure 115/55 L 135/62 Pulse Oximetry 92 L 94 L Intake & Output 04/05/18 04/06/18 04/06/18 18:59 06:59 18:59 Other: # Voids 1 Date of Last Bowel Movement 04/03/18 04/05/18 Narrative: GENERAL: Alert, Oriented x 3, NAD. SKIN: Warm and dry. HEAD: Normocephalic. EYES: No scleral icterus. No injection or drainage. NECK: Supple, trachea midline. No JVD or lymphadenopathy. CARDIOVASCULAR: Regular rate and rhythm without murmurs, gallops, or rubs. RESPIRATORY: Breath sounds equal bilaterally. No accessory muscle use. GASTROINTESTINAL: Abdomen soft, non-tender, nondistended. MUSCULOSKELETAL: No cyanosis, or edema. BACK: Nontender without obvious deformity. No CVA tenderness. Results - Labs CBC & Chem 7: 04/06/18 06:36 04/06/18 06:36 Laboratory Results - last 24 hr 04/06/18 04/06/18 04/06/18 06:36 06:36 06:36 WBC 5.0 RBC 4.71 Hgb 14.2 Hct 42.7 MCV 90.5 MCH 30.2 MCHC 33.4 RDW 14.2 Plt Count 194 MPV 7.5 Neut % (Auto) 59.4 Lymph % (Auto) 29.0 [place] % (Auto) 10.3 H Eos % (Auto) 0.9 Baso % (Auto) 0.4 Neut # (Auto) 2.9 Lymph # (Auto) 1.4 [place] # (Auto) 0.5 Eos # (Auto) 0.0 Baso # (Auto) 0.0 WBC Differential . Differential Comment Auto diff final PT 10.7 INR 1.1 Sodium 142 Potassium 3.7 Chloride 109 H Carbon Dioxide 24.2 Anion Gap 9 BUN 19 H Creatinine 0.70 Estimated GFR 80 L Random Glucose 102 Calcium 8.7 - Imaging Chest X-Ray 04/04/18 21:15 CONCLUSION: 1. Status post interval median sternotomy. 2. No acute cardiopulmonary disease. Thoracic Aorta CT 04/04/18 22:06 CONCLUSION: 1. No aortic dissection as questioned. 2. Moderate coronary artery calcifications. 3. Mildly ectatic descending thoracic aorta measuring up to 3.2 cm. 4. Heavily calcified common iliac arteries with focal moderate stenosis of the right common iliac origin. 5. Subcentimeter bilateral adrenal nodules with indeterminate density. These appear unchanged from 2017 exam and probably benign. 6. Ancillary findings include colonic diverticulosis and degenerative changes of the thoracolumbar spine. Assessment and Plan - Plan This is an 82-year-old female history of CAD status post CABG January 2017 while in [place] presented to ED with plan of chest pain on 04/04/2018. Patient describes her chest pain as an upper back discomfort that is similar to when she needs her stents in the past as well as when needing bypass in January of last year. Cardiology was consulted and they recommended cardiac catheterization. Acute chest pain - Troponin 0.02, 0.04, 0.03. - Cath today. -Continue aspirin 325 mg daily, enalapril 5 mg daily, atorvastatin 80 mg daily. -No beta-shana due to bradycardia. -Nitroglycerin as needed. CAD status post CABG in January 2017. Hypothyroidism Insomnia Anxiety -Continue home medications Xanax, trazodone, levothyroxine 25 mcg p.o. daily. Full code. Ambulation, SCDs. Probable discharge today if cath unremarkable.
[2018-04-06] MEDS ORDERED: Heparin/NS PF Inj 1,000 ML ONE (13:09)
[2018-04-06] MEDS ORDERED: Heparin 10,000 UNITS/10 ML Vial (for IV use) ONE (13:10)
[2018-04-06] MEDS ORDERED: fentaNYL Citrate Inj 100 MCG/2 ML Ampul ONE (13:10)
[2018-04-06] MEDS ORDERED: hydrALAZINE HCl Inj 20 MG/ML Vial ONE (14:08)
--- NOTE | 2018-04-06 14:28 | CATHPROC ---
[facility] HIS Report Study Information Study Number Admission Scheduled Start Study Start [id number] Apr 05 2018 1:47AM 04/06/2018 Apr 06 2018 1:00PM [facility] Cardiac Catheterization Admit Source Facility Department Emergency department [facility] - [employer] Physician and Clinical Staff Initial Nicolette Reveles Sr. Director Product Management Tameka Dumont,MIAH Recorder Sacha Tyson,RT(R) Scrub Soo Harden,SECURITY ATTENDANT TECH2 Procedures Performed Procedure Location (Site) Vessel Name Angiogram LV LV Ventricle Coronary Angiograms LCA Left Coronary Coronary Angiograms RCA Right Coronary Coronary Angiograms Abd Aorta (A3) Aorta Coronary Angiograms SVG-OM CIRC Coronary Angiograms Iliac R. Com. (R4) Illiac Art. Coronary Angiograms HINES HINES L Heart Cath Wire insertion Fem Art (right) Femoral Art Equipment Time Legal Instructor Description Size Mfg Part Number Used/Scraped TRANSDUCER, TRUWAVE [id number] 13:05 ESTRELLA QUINN * Used W/STOCKCOCK *[id number] INTRODUCER SET, 13:05 [employer] FR 5 [id number] *[id number] Used MICROPUNCTURE STIFF [phone] *[id number] 538-460 *[id number] 538-420 *[id number] 538-421 *[id number] 538-453S *[id number] WIRE, HYDROSTEER 150CM [id number] 13:32 [employer]IG[employer] 150CM Used ANGLED GLIDE *[id number] 13:05 [employer] BLANKET,WARM AIR CCL * Used *[id number] 13:05 [employer] PACK, CCL CUSTOM * Used *[id number] 13:05 [employer] PACER PEN, SKIN DUAL W/ RULER * Used *[id number] 13:05 Page[employer] WIRE, 3MMJ .035 180CM 180CM Used *[id number] PROBE COVER, STERILE [id number] 13:05 [employer] * Used ULTRASOUND W/ GEL *[id number] 13:05 NAMIC MANIFOLD, 4 PORT * Used *[id number] 13:05 [employer]COMED OMNIPAQUE, 350 MG, 150ML 150ML [id number] Used 13:57 [employer] OMNIPAQUE, 350 MG, 50ML 50ML [id number] Used [id number] 13:05 TERUMO MEDICAL SHEATH, FR4 TERUMO (10CM) FR 4 Used *[id number] Equipment Model, Serial, Lot Number and Expiration Data Description Model Number Serial Number Lot Number Expiration Date BRISEIDA DAWKINS 150CM [id number] 09-02-2020 ANGLED GLIDE History: Current Medications Medication Dosage/Unit Route Frequency Last Date/Time Taken CRESTOR ASA LIPITOR VASOTEC NTG Patch History: Allergies Allergy Reaction Lipitor ALLERGY TO CHOLESTEROL MEDS Lopid ALLERGY TO CHOLESTEROL MEDS Mevacor ALLERGY TO CHOLESTEROL MEDS Zetia ALLERGY TO CHOLESTEROL MEDS No Known Allergies History: Risk Factors Family History of Hypertension Dyslipidemia Previous [place] Previous Heart Failure Premature CAD Yes Yes Yes Yes No Prior Valve Prior PCI Prior PCIDate Prior CABG Prior CABGDate Surgery No Yes 04/05/2012 Yes 04/05/2017 Cerebrovascular Peripheral Artery Chronic Lung On Dialysis Diabetes Disease Disease Disease No No No No No History: Symptoms/Diagnosis Selection Items Chest pain History: CV Disease Selection Items Known CAD [place] History: Stress Tests Stress or Imaging Studies Performed No History: Other Disease Selection Items CAD HTN History: Other Current Smoker Method Packs a Day Years Used Pack Years No Cigarettes 1 53 53 Labs Hgb (g/dl) Hct (%) WBC (l/cumm) Platelets (thousands) 11.60-17.00 35.00-51.00 4.00-11.00 150.00-450.00 14.2 42.7 5 194 Glucose (mg/dl) BUN (mg/dl) Creatinine (mg/dl) BUN:Creatinine (1:x) 74.00-106.00 7.00-18.00 0.50-1.30 10.00-20.00 102 19 0.7 27.1 Na (meq/l) K (meq/l) 136.00-145.00 3.50-5.10 142 3.7 INR (PTT:PT) 0.90-1.10 1.1 Troponin I (ng/ml) Troponin T (ng/ml) CPK (u/l) CPK-MB (ng/ML) 0.02-0.05 0.40-2.10 26.00-308.00 0.50-3.60 0.03 0.04 62 Not Drawn Medication Medication Total Dose (Bolus/Oral) Medication Total Dosage/Unit 1% XYLOCAINE 20 mL FENTANYL 50 mcg HYDRALAZINE 10 mg VERSED 2 mg Medications (Bolus/Oral) Medication Time Given Dosage/Unit Administered By Reason VERSED 04/06/2018 1:24:02 PM 2 mg Tameka Dumont Patient arrived on 2 mg VERSED given by Tameka Dumont RN in Right Hand via Peripheral IV. FENTANYL 04/06/2018 1:24:09 PM 50 mcg Tameka Dumont Patient arrived on 50 mcg FENTANYL given by Tameka Dumont RN in Right Hand via Peripheral IV. 1% XYLOCAINE 04/06/2018 1:25:08 PM 20 mL Nicolette Barroso Patient arrived on 20 mL 1% XYLOCAINE given by Nicolette Barroso in Right Groin via Subcutaneous. HYDRALAZINE 04/06/2018 2:11:50 PM 10 mg Tameka Dumont Patient arrived on 10 mg HYDRALAZINE given by Tameka Dumont RN in Right Hand via Peripheral IV. Medication (Drip) Medication Time Given Dosage/Unit Concentration/Unit Diluent (ml) Solution IV Solutions 04/06/2018 1:01:04 PM 0 mL (IV) 1000 NaCl .9 Patient arrived on IV Solutions in Right Hand via Peripheral IV. Pump/Drip Flow = 20 ml/hr using NaCl .9. Initial Case Assessment Cardiovascular HR Rhythm NIBP Chest Pain 53 Sinus/Joaquin 164/68 0 Edema Present Skin color Skin None Normal Warm Dry Circulatory - Right Pulses Dorsalis Pedis Femoral 1 2 Scale (0,1,2,3,4,d) Circulatory - Left Pulses Dorsalis Pedis Femoral 1 2 Scale (0,1,2,3,4,d) Neurological State Oriented to time-place- Alert Moves all extremities person Respiration - General Respiration Rate SpO2 (%) O2 (lpm) (B/min) 15 98 0 Final Case Assessment Cardiovascular HR Rhythm NIBP Chest Pain 56 Sinus/Joaquin 155/60 0 Edema Present Skin color Skin None Normal Warm Dry Circulatory - Right Pulses Dorsalis Pedis Femoral 1 1 Scale (0,1,2,3,4,d) Circulatory - Left Pulses Dorsalis Pedis Femoral 1 2 Scale (0,1,2,3,4,d) Neurological State Oriented to time-place- Alert Moves all extremities person Respiration - General Respiration Rate SpO2 (%) O2 (lpm) (B/min) 21 96 0 Chronological Log Time Study Chronological Log 13:00:48 Patient arrived via Bed. 13:00:50 Patient Name, D.O.B, / Armband Verified By R.N. 13:00:51 Consent signed by the physician and the patient and verified by the [employer] staff. 13:00:51 Pre-op and post- op instructions given; patient acknowledges understanding of instructions. 13:00:52 Verbal Stimulation=2 Physical Stimulation=2 Airway=2 Respiration=2 TOTAL=8. (0=absent, 1=li mited, 2=present) 13:00:53 Presedation assessment performed by [facility] [employer] RN. 13:00:56 Patient has been NPO for More than 6Hrs. 13:00:57 Skin Breakdown- Right midd[place] scrape, scattered bruises 13:00:58 Patient Warmer Placed on the Table. 13:01:00 Amadou Prominences Protected 13:01:03 A # 20 IV was noted in the Hand (right). Grade = 0 13:01:04 Patient arrived on IV Solutions in Right Hand via Peripheral IV. Pump/Drip Flow = 20 ml/hr using NaCl .9. 13:01:05 History and physical on the chart or being dictated. Vitals capture started with the following parameters, Patient=Adult, Interval=5 min, Initial Pr tcbwno=944 mmHg, 13:08:05 Deflation Rate=5 mmHg, Cuff placed on Left Arm 13:09:20 HR=54 bpm, SRBS=364/68 mmhg, SpO2=97.0 %, Resp=16 B/min, Pain=0, Tang=10, Camacho=2 13:13:54 HR=52 bpm, AXJA=293/65 mmhg, SpO2=98.0 %, Resp=12 B/min, Pain=0, Tang=10, Camacho=2 Assessment: Initial Case, HR=53 BPM, Rhythm=Sinus/Joaquin, WKNB=801/68 mmhg, Chest Pain=0, Edema= None, Color=Normal, Skin = Warm, Dry Right Pulses: Hector Ped=1, Femoral=2 13:14:25 Left Pulses: Hector Ped=1, Femoral=2 Neurological: State=Alert, Ox3, WALKER Respiration: Resp=15 B/min, SpO2=98 %, O2=0 lpm 13:15:59 Bilateral groins prepped with 2% chlorhexidine, and draped after a 3 minute waiting time. 13:16:22 MD paged 13:17:27 MD arrived. 13:18:53 HR=53 bpm, CLRH=265/67 mmhg, SpO2=96.0 %, Resp=18 B/min, Pain=0, Tang=10, Camacho=2 13:20:40 Pressure channel 2 zeroed. 13:23:50 HR=66 bpm, WPUB=114/75 mmhg, SpO2=96.0 %, Resp=21 B/min, Pain=0, Tang=10, Camacho=2 Time Out. Correct patient, correct procedure, correct physician, labs, allergies, and equipment verified with pharmaceutical laboratory technician 13:24:00 team present. Fire risk assesment completed (see hard stop sheet for coding). Time Out Conc urred by MD and individual staff in procedure. 13:24:02 Patient arrived on 2 mg VERSED given by Tameka Dumont RN in Right Hand via Peripheral IV . 13:24:09 Patient arrived on 50 mcg FENTANYL given by Tameka Dumont RN in Right Hand via Periphera l IV. 13:25:08 Patient arrived on 20 mL 1% XYLOCAINE given by Nicolette Barroso in Right Groin via Subcutan eous. 13:25:17 Case Start 13:27:54 Access site was Right Femoral Artery. 13:28:55 HR=52 bpm, KXLD=253/53 mmhg, SpO2=88.0 %, Resp=23 B/min, Pain=0, Tang=10, Camacho=2 13:29:04 A SHEATH, FR4 TERUMO (10CM) FR 4 was advanced into the Fem Art (right) using the Percutaneo us technique. 13:29:27 Reference ECG taken A JL 4.0 INFINITI CATHETER FR 4 was advanced over a wire. OMNIPAQUE, 350 MG, 150ML 150ML was us ed for 13:30:45 injections. 13:33:46 HR=57 bpm, NZQP=164/49 mmhg, SpO2=91.0 %, Resp=14 B/min, Pain=0, Tang=10, Camacho=2 Recorded Pressure: Ao, HR=58, Condition=Condition 1 13:34:21 (Aorta) Ao 102/43/65 13:35:13 The LCA was injected and visualized at various angles. OMNIPAQUE, 350 MG, 150ML 150ML used . 13:38:47 HR=57 bpm, ATAJ=973/51 mmhg, SpO2=91.0 %, Resp=18 B/min, Pain=0, Tang=10, Camacho=2 After removing the current catheter a 3DRC INFINITI CATHETER FR 4 was advanced over a WIRE, 3MM J .035 180CM 13:40:05 180CM. 13:41:38 The RCA was injected and visualized at various angles. OMNIPAQUE, 350 MG, 150ML 150ML used . 13:43:34 The SVG-OM was injected and visualized at various angles. OMNIPAQUE, 350 MG, 150ML 150ML us ed. 13:43:46 HR=58 bpm, XMEA=026/51 mmhg, SpO2=89.0 %, Resp=14 B/min, Pain=0, Tang=10, Camacho=2 After removing the current catheter a IM INFINITI CATHETER FR 4 was advanced over a WIRE, HYDRO STEER 150CM 13:48:00 ANGLED GLIDE 150CM. 13:48:47 HR=55 bpm, MGLB=698/55 mmhg, SpO2=92.0 %, Resp=20 B/min, Pain=0, Tagn=10, Camacho=2 13:50:58 The HINES was injected and visualized at various angles. OMNIPAQUE, 350 MG, 150ML 150ML used . 13:52:21 A WIRE, 3MMJ .035 180CM 180CM was inserted via Fem Art (right). 13:53:48 HR=65 bpm, UTRI=185/58 mmhg, SpO2=95.0 %, Resp=16 B/min, Pain=0, Tang=10, Camacho=2 Recorded Pressure: LV, HR=60, Condition=Condition 1 13:56:11 (Left Ventricle) LV 135/0/6 13:57:09 The LV was injected at 8 cc/sec for a total of 20. OMNIPAQUE, 350 MG, 50ML 50ML used. Recorded Pressure: LV, Ao, HR=63, Condition=Condition 1 13:57:32 (Left Ventricle) LV 137/10/9, (Aorta) Ao 129/53/83 13:59:08 A WIRE, HYDROSTEER 150CM ANGLED GLIDE 150CM was inserted via Fem Art (right). 13:59:30 HR=63 bpm, COKA=007/58 mmhg, SpO2=94.0 %, Resp=19 B/min, Pain=0, Tang=10, Camacho=2 13:59:32 Wire removed 14:00:13 The Abd Aorta (A3) was injected and visualized at various angles. OMNIPAQUE, 350 MG, 150ML 150ML used. 14:01:26 Catheter was removed 14:01:31 Wire removed 14:01:57 An injection in the Fem Art (right) was made through the SHEATH, FR4 TERUMO (10CM) FR 4. 14:04:32 HR=61 bpm, PNYU=018/65 mmhg, SpO2=94.0 %, Resp=18 B/min, Pain=0, Tang=10, Camacho=2 A JR 4.0 INFINITI CATHETER FR 4 was advanced over a wire. OMNIPAQUE, 350 MG, 150ML 150ML was us ed for 14:04:34 injections. 14:05:24 The Iliac R. Com. (R4) was injected and visualized at various angles. OMNIPAQUE, 350 MG, 15 0ML 150ML used. 14:06:54 Catheter was removed 14:07:09 Case End (Physician broke scrub) 14:08:56 HR=67 bpm, DKYB=045/70 mmhg, SpO2=97.0 %, Resp=22 B/min, Pain=0, Tang=10, Camacho=2 14:11:50 Patient arrived on 10 mg HYDRALAZINE given by Tameka Dumont RN in Right Hand via Periphe ral IV. Assessment: Final Case, HR=56 BPM, Rhythm=Sinus/Joaquin, EGIR=979/60 mmhg, Chest Pain=0, Edema=No ne, Color=Normal, Skin = Warm, Dry Right Pulses: Hector Ped=1, Femoral=1 14:13:10 Left Pulses: Hector Ped=1, Femoral=2 Neurological: State=Alert, Ox3, WALKER Respiration: Resp=21 B/min, SpO2=96 %, O2=0 lpm 14:14:42 HR=57 bpm, DUZX=289/60 mmhg, SpO2=98.0 %, Resp=18 B/min, Pain=0, Tang=10, Camacho=2 14:15:10 Sheath removed; pressure applied to access site. 14:15:26 No case complications noted. 14:15:27 Cine recording checked. 14:17:13 Bedside Report will be given. 14:17:17 A Left Heart Cath was performed. 14:18:58 HR=60 bpm, CWPT=975/70 mmhg, SpO2=98.0 %, Resp=18 B/min, Pain=0, Tang=10, Camacho=2 14:24:44 Sterile dressing applied to site 14:27:52 Patient moved to stretcher End Study - Contrast Media Used In Study Contrast Total Opened (mL) Total Used (mL) Total Wasted (mL) Omnipaque 200 95 105 End Study - Maximum Contrast Load Max Contrast Load (mL) 527.9 End Study - Radiation Exposure Fluoro Time (minutes) 11.6 End Study - Patient Disposition Complications Transferred To Interventional Outcome No Telemetry Bed No attempt made
--- NOTE | 2018-04-06 15:16 | MP ---
cc:Huey Rodriges Humayun A MD Ted Bass MD Shands Melber. DATE OF OPERATION: 04/06/2018 INDICATION FOR CATHETERIZATION: Unstable angina. BRIEF HISTORY: This 82-year-old white female presents with acute coronary syndrome. She has a history of bypass surgery about 1 year ago. Apparently, she had a sequential vein graft with 1 aortotomy to the obtuse marginal 1 and posterior descending artery. The left internal mammary artery was "freed" but the LAD was NOT bypassed. The patient presented with usual typical anginal chest pains. DESCRIPTION OF PROCEDURE: The right femoral artery was entered using micropuncture technique with ultrasound via the 4-Cub[place] sheath. Left and right coronary catheters were used to intubate the right and left coronary arteries. Pigtail catheter in the left ventricle. RCA catheter the SVG and IM catheter the IM artery. Multiple angiographic views were carried out. At the end of the catheterization procedure, all catheters and sheaths were removed. Manual pressure was applied with good hemostasis achieved. The patient was returned to the recovery room in stable condition. PROCEDURE: 1. Left heart catheterization. 2. Left ventriculogram. 3. Internal mammary injection. 4. Right iliac artery injection. 5. Sedation with fentanyl and Versed. 6. Saphenous vein graft injection. FINDINGS: HEMODYNAMICS: The aortic pressure was 129/52 with a mean of 83. Left ventricular pressure _137_ with a left ventricular pressure of 9. There was no evidence of significant gradient on pullback across the LV outflow tract and aortic valve. LEFT VENTRICULOGRAM: The overall left ventricular ejection fraction was 60%. There was no evidence of significant mitral regurgitation or mural thrombus. CORONARY ARTERIES: The left main was 99% occluded. The ostial LAD was 99% occluded. The circumflex ostium was 99% occluded. There was evidence of competitive flow in the circumflex vessel. The LAD itself was a moderate-size vessel with a moderate-size first diagonal branch and a moderate-sized second diagonal branch. There was evidence of some mild diffuse disease throughout these vessels. The right coronary artery was a large dominant vessel, which had evidence of competitive flow in the PDA frm the SVG. There was a proximal lesion in the right coronary artery of about 50%. There is good competitive flow in the posterior descending artery with the sequential graft. VENOUS GRAFT: There was a sequential vein graft to the OM1 and PDA. The OM was widely patent with a good anastamosis The PDA was widely patent also with a good anastamosis KANDACE: Freed but not grafted. There was a high-grade iliac stenosis in the right iliac of about 75%. The posterior descending artery and the posterolateral branches were large. Mild diffuse disease noted throughout the right coronary artery. INTERNAL MAMMARY ARTERY: This was totally occluded in its midsection. CONCLUSION: 1. Normal left ventricular function. 2. Severe 3-vessel coronary artery disease. 3. Right iliac artery disease. 4. Calcified left main stenosis involving the ostium of the circumflex and the left anterior descending. PLAN: 1. Possible Rotablator of the left main and ostium of the LAD with stenting. 2. Patent sequential vein graft to the OM and right coronary artery. MD CICI Parish/becky/lindsey , 02:25 PM , 02:36 PM BHARATH
[2018-04-06] MEDS ORDERED: amLODIPine 5 MG Tablet PO ONE (15:30)
[2018-04-06] MEDS ORDERED: ALPRAZolam 0.25 MG Tablet PO ONE (15:30)
[2018-04-06] MEDS ORDERED: Enoxaparin Inj 60 MG/0.6 ML Syringe SQ ONE (18:58)
[2018-04-06 18:59] VITALS: PULSE 62
[2018-04-06 19:02] VITALS: BP 148/41; TEMP 98
== END 2018-04-06 19:50 | disposition short-term general hospital (02) ==
LOC: NEPC 20:41 → NEDA 20:41 → NEPFCDU 04-05 03:45 → HCIS 04-06 12:54
PROVIDERS: ADMIT Hospitalist; ATTEND Hospitalist